=== PATIENT | male | born 1950 | race Hispanic/Latino ===

== ENCOUNTER → 2017-05-19 | Outpatient (CLI) | payer BC, MEDICARE ==
[~2017-05-19] MED LIST: ASPIRIN81 MG PO; ATENOLOL25 MG PO; COUMADIN5 MG PO; LANTUS 3ML100 UNITS/ SQ; LISINOPRIL10 MG PO; METFORMIN HCL500 MG PO
--- NOTE | 2017-05-19 12:08 | Diagnostic Imaging Report ---
Examination: MRI BRAIN WITHOUT CONTRAST History: Right-sided facial droop. Comparison studies: None Technique: Sagittal T2; axial DWI, FLAIR, GRE or SWI, T1, Coronal FLAIR. Intravenous contrast: None Findings: Scalp: No abnormal signal. No masses. Bone marrow: Normal in signal intensity. Brain volume: Adequate for age. No volume loss. Ventricles: Normal in size and configuration. No hydrocephalus. Extra-axial spaces: No abnormalities. Parenchyma: There are subtle periventricular and pontine white matter confluent areas of T2/FLAIR hyperintensity, nonspecific. No masses, hemorrhage, acute or chronic vascular insults. Suprasellar and sellar region: No abnormalities. Craniocervical junction: No abnormalities. The foramen magnum is patent. No Chiari malformations. Vessels: Normal flow-voids in the arteries and sinuses. Additional findings:None. IMPRESSION: 1. No acute intracranial abnormalities, specifically, no acute infarct. 2. Mild chronic microvascular ischemic change. Signed by: Dr. Thelma Saxena M.D. on 05/19/2017 12:04 PM
== END ==
LOC: MRI 09:31
PROVIDERS: ATTEND Internal Medicine Interventional Cardiology
DX: R29.810 Facial weakness (principal)
CPT/HCPCS: 70551

== ENCOUNTER → 2017-10-26 | Outpatient (CLI) | payer MEDICARE, BC ==
[~2017-10-26] MED LIST changes: +IOPAMIDOL 370 MG/ML 200 ML INFUS..BTL INJ ONE; +SODIUM CHLORIDE 0.9% 250ML 500 ML ONE; +SODIUM CHLORIDE 0.9% 50ML 50 ML ONE
[2017-10-26 16:08] LABS: CREATININE, SERUM 1.79 mg/dL (0.72-1.25)
--- NOTE | 2017-10-26 17:14 | Diagnostic Imaging Report ---
PROCEDURE: CT scan of the chest WITH intravenous contrast, using PE protocol. TECHNIQUE: The chest was scanned utilizing a multidetector helical scanner from the lung apex through the level of the adrenal glands after the IV administration of 98 cc of Isovue 370. Coronal and sagittal multiplanar reformations were obtained. DLP: 456.2 mGy-cm COMPARISON: None. INDICATIONS: PE WITH KIDNEY CANCER FINDINGS: Lines/tubes: Right chest wall port with catheter tip at the cavoatrial junction. Lungs and Airways: Scattered nodules, including (on series 3): * Right upper lobe 0.4 cm nodule (image 46) * Right middle lobe 0.5 cm nodule along the minor fissure (image 64). * Right upper lobe 0.3 cm area of plugging in a bronchus (image 47). * Right lower lobe 0.6 cm nodule (image 53) No consolidations. Airways are normal. Pleura: The pleural spaces are clear. Heart and mediastinum: Left thyroid lobe 0.6 cm nodules. No significant mediastinal, hilar or axillary lymphadenopathy is seen. The heart and pericardium are within normal limits. LAD stent. Coronary artery calcifications. Soft tissues: Normal. Abdomen: Limited contrast-enhanced views of the upper abdomen show no abnormality within the visualized liver, spleen, or pancreas. The adrenal glands are normal. Partially visualized mass in the superior pole of the left kidney. Bones: The visualized bony thorax is within normal limits for age. IMPRESSION: 1. No evidence of pulmonary embolism or acute thoracic abnormalities. 2. Scattered pulmonary nodules measuring up to 0.6 cm. Recommend correlation with prior imaging if available, and/or follow up per oncology protocol. 3. Partially visualized mass in the superior pole of the left kidney. Dictated by: Mayco Martinez M.D. on 10/26/2017 at 17:19 Electronically approved by: Mayco Martinez M.D. on 10/26/2017 at 17:19
== END ==
LOC: CT 15:16
PROVIDERS: ATTEND Internal Medicine Interventional Cardiology
DX: R06.02 Shortness of breath (principal)
CPT/HCPCS: 36415; 71260; 82565; 84520; J7050; Q9967

== ENCOUNTER → 2019-01-09 | Day surgery (SDC) | payer MEDICARE, BC ==
[2019-01-08 17:19] LABS: BASOPHILS % 0.5 % (0.0-1.0); EOSINOPHILS # (AUTO) 0.4 (0.0-0.4); EOSINOPHILS % 6.2 % (0.0-6.0); HEMATOCRIT 32.4 % (38.2-49.6); HEMOGLOBIN 11.6 g/dL (14.0-18.0); LYMPHOCYTES # (AUTO) 1.6 (1.0-3.2); LYMPHOCYTES % 26.7 % (18.0-39.1); MEAN CORPUSCULAR HEMOGLOBIN 30.1 pg (28-32); MEAN CORPUSCULAR HGB CONC 35.8 g/dL (31-35); MEAN CORPUSCULAR VOLUME 84.2 fL (81-99); MONOCYTES # (AUTO) 0.6 (0.2-0.8); MONOCYTES % 9.9 % (4.4-11.3); NEUTROPHILS # (AUTO) 3.3 (2.1-6.9); NEUTROPHILS % 55.9 % (38.7-80.0); PLATELET COUNT 153 x10e3/uL (140-360); RED BLOOD COUNT 3.85 x10e6/uL (4.3-5.7)
[2019-01-08 17:36] LABS: ALBUMIN 4.6 g/dL (3.5-5.0); ALBUMIN/GLOBULIN RATIO 1.4 (0.8-2.0); ANION GAP 17.4 mmol/L (8-16); CALCIUM 10.1 mg/dL (8.4-10.2); CREATININE, SERUM 2.8 mg/dL (0.72-1.25); POTASSIUM 5.4 mmol/L (3.5-5.1)
[2019-01-09] VITALS (10 sets, daily range): BP systolic 124–158; BP diastolic 60–87
[~2019-01-09] VITALS: Ht 162.6 cm; Wt 59.9 kg
[~2019-01-09] MED LIST changes: +ALPRAZOLAM 0.5 MG TAB ONE; +CARVEDILOL12.5 MG PO; +CARVEDILOL3.125 MG PO; +DIPHENHYDRAMINE HCL 25 MG CAP ONE; +FENTANYL CITRATE/PF 100MCG/2 ML INJ ONE; +HEPARIN SOD/SOD CHLORIDE 2,000 ML ONE; +LIDOCAINE HCL 2% LOCAL 20 ML VIAL ONE; +MIDAZOLAM HCL 2 MG/2 ML VIAL ONE; +SODIUM CHLORIDE 0.9% 1000ML 1,000 ML ONE; -SODIUM CHLORIDE 0.9% 250ML 500 ML ONE; +SODIUM CHLORIDE 0.9% 500ML 500 ML ONE; -SODIUM CHLORIDE 0.9% 50ML 50 ML ONE; +VERAPAMIL HCL 2.5 MG/ML 2 ML VIAL ONE
--- OUTSIDE RECORDS SUMMARY | 2019-01-09 08:59 | XMS REPORT ---
Author Author Aissatou Alejandre [facility] eClinicalWorks Address Unknown Phone Unavailable Care Team Providers Care Telegraph Office Manager Name Role Phone Aissatou Alejandre CP Unavailable Allergies, Adverse Reactions, Alerts Substance Reaction Event Type N.K.D.A. Info Not Available Non Drug Allergy Problems Problem Type Condition Code Onset Dates Condition Status Assessment Essential hypertension I10 Active Assessment Type 2 diabetes mellitus with hyperglycemia E11.65 Active Assessment Acute URI J06.9 Active Problem Anemia, unspecified type D64.9 Active Problem GERD (gastroesophageal reflux disease) K21.9 Active Problem Metastatic cancer C79.9 Active Problem Hx of bladder cancer Z85.51 Active Problem Type 2 diabetes mellitus with hyperglycemia E11.65 Active Problem CAD (coronary artery disease) I25.10 Active Problem Essential hypertension I10 Active Medications Medication Code System Code Instructions Start Date End Date Status Dosage OneTouch Lancets NDC 0 1 subcutaneously test BS BID DX:250.02 August 02, 2012 Active as directed Atorvastatin Calcium ND 72158181022 20 mg Orally Once a day Active 1 tablet [address]il[address] [facility] [address]-85 3.125MG Orally twice a day (bid) Active 1 tablet [address] [facility] 64602759030 4 mg Orally Twice a day May 16, 2018 Active 1 tablet Stool Softener [facility] [address]-34 60 MG/15ML Orally Once a day Active 15 ml as needed Lisinopril [facility] 09860772967 20 mg Orally Once a day Jun 24, 2016 Active 1 tablet OneTouch Test NDC 0 1 In Vitro test blood sugar BID DX: 250.02 August 02, 2012 Active as directed Metformin HCl [facility] 86744609530 1000 mg Orally Twice a day October 25, 2017 Active 1 tablet with meals NovoLog Flexpen [facility] 82516632397 100 UNIT/ML Subcutaneous take per sliding scale (highest dose would be 10 units TID) Dec 13, 2017 Active as directed Lantus SoloStar [facility] 15907471834 100 UNIT/ML Subcutaneous INJECTING 50 UNIITS EVERY NIGHT (1 BOX) (if above 140 increase by 2 units) Active as directed Bromfed DM [facility] 74681951428 30-2-10 MG/5ML Orally every 4 hrs September 19, 2018 September 22, 2018 Active 10 ml as needed Aspirin EC [facility] 55469763613 81 MG Orally Once a day Active 1 tablet Pen [place] 09/14" [facility] 57752333396 31G X 8 MM up to 4 times a day with insulin pens (DX E11.65) Dec 13, 2017 Active as directed Vital Signs Date/Time: September 19, 2018 BMI 23.86 Index Weight 139 lbs Height 64 in Temperature 97.8 F Cardiac Monitoring Heart Rate 72 /min Blood Pressure Diastolic 82 mm Hg Blood Pressure Systolic 130 mm Hg Results Name Result Date Reference Range Unit Abnormality Flag DECADRON 1MGx4 Summary Purpose eClinicalWorks Submission
--- OUTSIDE RECORDS SUMMARY | 2019-01-09 08:59 | XMS REPORT ---
Author Author Aissatou Alejandre [facility] eClinicalWorks Address Unknown Phone Unavailable Care Team Providers Care Product Development Engineer Name Role Phone Aissatou Alejandre CP Unavailable Allergies, Adverse Reactions, Alerts Substance Reaction Event Type N.K.D.A. Info Not Available Non Drug Allergy Problems Problem Type Condition Code Onset Dates Condition Status Assessment Hx of bladder cancer Z85.51 Active Assessment Flu-like symptoms R68.89 Active Assessment Metastatic cancer C79.9 Active Problem Anemia, unspecified type D64.9 Active Problem GERD (gastroesophageal reflux disease) K21.9 Active Problem Metastatic cancer C79.9 Active Problem Hx of bladder cancer Z85.51 Active Problem Type 2 diabetes mellitus with hyperglycemia E11.65 Active Problem CAD (coronary artery disease) I25.10 Active Problem Essential hypertension I10 Active Medications Medication Code System Code Instructions Start Date End Date Status Dosage Aspirin EC [facility] 02550795879 81 MG Orally Once a day Active 1 tablet Stool Softener [facility] [address]-46 60 MG/15ML Orally Once a day Active 15 ml as needed OneTouch Test NDC 0 1 In Vitro test blood sugar BID DX: 250.02 August 02, 2012 Active as directed Metformin HCl [facility] 19167408019 1000 mg Orally Twice a day October 25, 2017 Active 1 tablet with meals Zofran [facility] 13205348671 4 mg Orally Twice a day May 16, 2018 Active 1 tablet Carvedilol [facility] [address]-17 3.125MG Orally twice a day (bid) Active 1 tablet Lisinopril [facility] 80080376073 20 mg Orally Once a day Jun 24, 2016 Active 1 tablet OneTouch Lancets NDC 0 1 subcutaneously test BS BID DX:250.02 August 02, 2012 Active as directed NovoLog Flexpen [facility] 27578494314 100 UNIT/ML Subcutaneous take per sliding scale (highest dose would be 10 units TID) Dec 13, 2017 Active as directed Pen [place] 5/16" [facility] 03291776805 31G X 8 MM up to 4 times a day with insulin pens (DX E11.65) Dec 13, 2017 Active as directed Lantus SoloStar [facility] 67532402295 100 UNIT/ML Subcutaneous INJECTING 50 UNIITS EVERY NIGHT (1 BOX) (if above 140 increase by 2 units) Active as directed Atorvastatin Calcium [facility] 45285492400 20 mg Orally Once a day Active 1 tablet Vital Signs Date/Time: July 14, 2018 BMI 23.69 Index Weight 138 lbs Height 64 in Temperature 98.1 F Cardiac Monitoring Heart Rate 105 /min Blood Pressure Diastolic 70 mm Hg Blood Pressure Systolic 100 mm Hg Results No Known Results Summary Purpose eClinicalWorks Submission
--- OUTSIDE RECORDS SUMMARY | 2019-01-09 08:59 | XMS REPORT ---
Author Author Renee Marie eClinicalWorks Address Unknown Phone Unavailable Care Team Providers Care Wireworker Name Role Phone Renee Marie Unavailable Allergies, Adverse Reactions, Alerts Substance Reaction Event Type N.K.D.A. Info Not Available Non Drug Allergy Problems Problem Type Condition Code Onset Dates Condition Status Assessment Essential hypertension I10 Active Assessment Type 2 diabetes mellitus with hyperglycemia E11.65 Active Assessment Hx of bladder cancer Z85.51 Active Assessment Low TSH level R94.6 Active Problem Essential hypertension I10 Active Problem CAD (coronary artery disease) I25.10 Active Problem Type 2 diabetes mellitus with hyperglycemia E11.65 Active Problem Bladder cancer C67.9 Active Assessment Encounter to discuss test results Z71.89 Active Problem GERD (gastroesophageal reflux disease) K21.9 Active Problem Hx of bladder cancer Z85.51 Active Medications Medication Code System Code Instructions Start Date End Date Status Dosage Invokana [facility] [address]-45 100 MG Orally Once a day Apr 13, 2017 Inactive 1 tablet Invokana [facility] [address]-48 300 MG Orally Once a day October 22, 2016 Apr 20, 2017 Active 1 tablet Lantus SoloStar [facility] [address]-99 100 UNIT/ML Subcutaneous INJECTING 42 UNIITS EVERY NIGHT (1 BOX) (if above 140 increase by 2 units) Feb 17, 2015 Active as directed OneTouch Lancets NDC 0 1 subcutaneously test BS BID DX:250.02 August 02, 2012 Active as directed Carvedilol [facility] [address]-13 3.125MG Orally daily Active 1 tablet Lisinopril [facility] [address]-52 20 MG Orally Once a day Jun 24, 2016 Active 1 tablet Aspirin EC [facility] [address]-47 81 MG Orally Once a day Active 1 tablet OneTouch Test NDC 0 1 In Vitro test blood sugar BID DX: 250.02 August 02, 2012 Active as directed Vital Signs Date/Time: October 22, 2016 BMI 23.69 Index Weight 138 lbs Height 64 in Cardiac Monitoring Heart Rate 78 /min Blood Pressure Diastolic 62 mm Hg Blood Pressure Systolic 98 mm Hg Results No Known Results Summary Purpose eClinicalWorks Submission
--- OUTSIDE RECORDS SUMMARY | 2019-01-09 08:59 | XMS REPORT ---
Author Author Renee Marie eClinicalWorks Address Unknown Phone Unavailable Care Team Providers Care Technical Producer Name Role Phone Renee Marie Unavailable Allergies, Adverse Reactions, Alerts Substance Reaction Event Type N.K.D.A. Info Not Available Non Drug Allergy Problems Problem Type Condition Code Onset Dates Condition Status Assessment Essential hypertension I10 Active Problem Essential hypertension I10 Active Problem CAD (coronary artery disease) I25.10 Active Problem Type 2 diabetes mellitus with hyperglycemia E11.65 Active Problem Bladder cancer C67.9 Active Assessment Intractable vomiting with nausea, unspecified vomiting type R11.2 Active Problem GERD (gastroesophageal reflux disease) K21.9 Active Problem Hx of bladder cancer Z85.51 Active Medications Medication Code System Code Instructions Start Date End Date Status Dosage Aspirin EC [facility] [address]-48 81 MG Orally Once a day Active 1 tablet OneTouch Test NDC 0 1 In Vitro test blood sugar BID DX: 250.02 August 02, 2012 Active as directed Lisinopril [facility] [address]-86 20 MG Orally Once a day Jun 24, 2016 Active 1 tablet Carvedilol [facility] [address]-47 3.125MG Orally daily Active 1 tablet OneTouch Lancets NDC 0 1 subcutaneously test BS BID DX:250.02 August 02, 2012 Active as directed Lantus SoloStar [facility] [address]-65 100 UNIT/ML Subcutaneous INJECTING 42 UNIITS EVERY NIGHT (1 BOX) (if above 140 increase by 2 units) Feb 17, 2015 Active as directed Invokana [facility] [address]-87 300 MG Orally Once a day October 22, 2016 Apr 20, 2017 Active 1 tablet Vital Signs Date/Time: November 04, 2016 BMI 23.86 Index Weight 139 lbs Height 64 in Temperature 97.9 F Cardiac Monitoring Heart Rate 93 /min Blood Pressure Diastolic 72 mm Hg Blood Pressure Systolic 128 mm Hg Results Name Result Date Reference Range Unit Abnormality Flag CBC ----Platelets 238 [id number] ----NEUTROPHILS MID-0.3,GRA-2.5 20161104 ----MCHC 33.9 20161104 ----MCH 31.9 20161104 ----MCV 94.3 20161104 ----WBC 3.9L 20161104 ----RDW 12.6 20161104 ----RBC 4.48 20161104 ----Hemoglobin 14.3 20161104 ----Hematocrit 42.2 20161104 Summary Purpose eClinicalWorks Submission
--- OUTSIDE RECORDS SUMMARY | 2019-01-09 08:59 | XMS REPORT ---
Author Author Renee Marie [facility] eClinicalWorks Address Unknown Phone Unavailable Care Team Providers Care Bankman Name Role Phone Renee Marie Unavailable Allergies, Adverse Reactions, Alerts Substance Reaction Event Type N.K.D.A. Info Not Available Non Drug Allergy Problems Problem Type Condition Code Onset Dates Condition Status Assessment Hx of bladder cancer Z85.51 Active Assessment Essential hypertension I10 Active Assessment CAD (coronary artery disease) I25.10 Active Problem Essential hypertension I10 Active Problem CAD (coronary artery disease) I25.10 Active Problem Type 2 diabetes mellitus with hyperglycemia E11.65 Active Problem Bladder cancer C67.9 Active Assessment Type 2 diabetes mellitus with hyperglycemia E11.65 Active Problem GERD (gastroesophageal reflux disease) K21.9 Active Problem Hx of bladder cancer Z85.51 Active Medications Medication Code System Code Instructions Start Date End Date Status Dosage Carvedilol [facility] [address]-00 3.125MG Orally daily Active 1 tablet OneTouch Test NDC 0 1 In Vitro test blood sugar BID DX: 250.02 August 02, 2012 Active as directed Invokana [facility] 71379337286 100MG Orally Once a day Active 1 tablet Lantus SoloStar [facility] [address]-76 100 UNIT/ML Subcutaneous INJECTING 40 UNIITS EVERY NIGHT (1 BOX) Feb 17, 2015 Active as directed OneTouch Lancets NDC 0 1 subcutaneously test BS BID DX:250.02 August 02, 2012 Active as directed Lisinopril [facility] [address]-89 20 MG Orally Once a day Jun 24, 2016 Active 1 tablet Invokana [facility] [address]-24 100 MG Orally Once a day Apr 13, 2017 Active 1 tablet Aspirin EC [facility] [address]-77 81 MG Orally Once a day Active 1 tablet Vital Signs Date/Time: October 15, 2016 BMI 23.69 Index Weight 138 lbs Height 64 in Cardiac Monitoring Heart Rate 97 /min Blood Pressure Diastolic 74 mm Hg Blood Pressure Systolic 138 mm Hg Results Name Result Date Reference Range Unit Abnormality Flag EKG Summary Purpose eClinicalWorks Submission
--- OUTSIDE RECORDS SUMMARY | 2019-01-09 08:59 | XMS REPORT ---
Author Author Renee Marie Organization eClinicalWorks Address Unknown Phone Unavailable Care Team Providers Care [place] Redevelopment Site Manager Name Role Phone Renee Marie CP Unavailable Allergies, Adverse Reactions, Alerts Substance Reaction Event Type N.K.D.A. Info Not Available Non Drug Allergy Problems Problem Type Condition Code Onset Dates Condition Status Assessment CAD (coronary artery disease) I25.10 Active Assessment GERD (gastroesophageal reflux disease) K21.9 Active Problem CAD (coronary artery disease) I25.10 Active Problem Essential hypertension I10 Active Problem GERD (gastroesophageal reflux disease) K21.9 Active Assessment Type 2 diabetes mellitus with hyperglycemia E11.65 Active Assessment Essential hypertension I10 Active Problem Hx of bladder cancer Z85.51 Active Problem Type 2 diabetes mellitus with hyperglycemia E11.65 Active Medications Medication Code System Code Instructions Start Date End Date Status Dosage Carvedilol [facility] [address]-12 3.125MG Orally daily Active 1 tablet OneTouch Test NDC 0 1 In Vitro test blood sugar BID DX: 250.02 August 02, 2012 Active as directed Lantus SoloStar [facility] 15966218991 100 UNIT/ML Subcutaneous INJECTING 40 UNIITS EVERY NIGHT (1 BOX) (if above 140 increase by 2 units) Feb 17, 2015 Active as directed OneTouch Lancets NDC 0 1 subcutaneously test BS BID DX:250.02 August 02, 2012 Active as directed Aspirin EC [facility] 99153895264 81 MG Orally Once a day Active 1 tablet Lisinopril [facility] 49193171381 20 mg Orally Once a day Jun 24, 2016 Active 1 tablet Invokana [facility] 45652886330 300 MG Orally Once a day October 22, 2016 August 23, 2017 Active 1 tablet Vital Signs Date/Time: Feb 24, 2017 BMI 25.92 Index Weight 151 lbs Height 64 in Cardiac Monitoring Heart Rate 82 /min Blood Pressure Diastolic 80 mm Hg Blood Pressure Systolic 130 mm Hg Results No Known Results Summary Purpose eClinicalWorks Submission
--- OUTSIDE RECORDS SUMMARY | 2019-01-09 08:59 | XMS REPORT ---
Author Author Renee Marie Organization eClinicalWorks Address Unknown Phone Unavailable Care Team Providers Care Waterproof Coating Machine Tender Name Role Phone Renee Marie CP Unavailable Allergies, Adverse Reactions, Alerts Substance Reaction Event Type N.K.D.A. Info Not Available Non Drug Allergy Problems Problem Type Condition Code Onset Dates Condition Status Assessment Hx of bladder cancer Z85.51 Active Assessment Essential hypertension I10 Active Problem CAD (coronary artery disease) I25.10 Active Problem Essential hypertension I10 Active Problem GERD (gastroesophageal reflux disease) K21.9 Active Assessment Encounter to discuss test results Z71.89 Active Assessment Type 2 diabetes mellitus with hyperglycemia E11.65 Active Problem Hx of bladder cancer Z85.51 Active Problem Type 2 diabetes mellitus with hyperglycemia E11.65 Active Medications Medication Code System Code Instructions Start Date End Date Status Dosage OneTouch Test NDC 0 1 In Vitro test blood sugar BID DX: 250.02 August 02, 2012 Active as directed Lantus SoloStar [facility] 15399468066 100 UNIT/ML Subcutaneous INJECTING 42 UNIITS EVERY NIGHT (1 BOX) (if above 140 increase by 2 units) Feb 17, 2015 Active as directed Invokana [facility] 13789974901 300 MG Orally Once a day October 22, 2016 August 23, 2017 Active 1 tablet OneTouch Lancets NDC 0 1 subcutaneously test BS BID DX:250.02 August 02, 2012 Active as directed Carvedilol [facility] [address]-92 3.125MG Orally daily Active 1 tablet Lisinopril [facility] 94242293857 20 mg Orally Once a day Jun 24, 2016 Active 1 tablet Aspirin EC ND 56949748830 81 MG Orally Once a day Active 1 tablet Vital Signs Date/Time: Mar 10, 2017 BMI 25.92 Index Weight 151 lbs Height 64 in Cardiac Monitoring Heart Rate 86 /min Blood Pressure Diastolic 96 mm Hg Blood Pressure Systolic 140 mm Hg Results No Known Results Summary Purpose eClinicalWorks Submission
--- OUTSIDE RECORDS SUMMARY | 2019-01-09 08:59 | XMS REPORT | Continuity of Care Document ---
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 Role Phone [employer] Unavailable Unavailable Problems Problem Status Onset Date Classification Date Reported Comments Source Hx of bladder cancer Active Problem 10/07/2018 [facility] Essential hypertension Active Diagnosis 10/07/2018 [facility] CAD (coronary artery disease) Active Problem 10/07/2018 [facility] Type 2 diabetes mellitus with hyperglycemia Active Diagnosis 10/07/2018 [facility] Bladder cancer Active Problem 11/06/2016 [facility] GERD (gastroesophageal reflux disease) Active Problem 10/07/2018 [facility] Left lateral abdominal pain Active Diagnosis 09/11/2016 [facility] Flu-like symptoms Active Diagnosis 07/26/2018 [facility] Metastatic cancer Active Problem 10/07/2018 [facility] Anemia, unspecified type Active Problem 10/07/2018 [facility] Low TSH level Active Diagnosis 10/26/2016 [facility] Encounter to discuss test results Active Diagnosis 03/12/2017 [facility] Intractable vomiting with nausea, unspecified vomiting type Active Diagnosis 11/06/2016 [facility] Type 2 diabetes mellitus without complication, without long-term current use of insulin Active Problem 12/14/2017 [facility] Abnormal chest xray Active Diagnosis 04/12/2018 [facility] Screening for colon cancer Active Diagnosis 04/11/2018 [facility] Routine physical examination Active Diagnosis 04/11/2018 [facility] Screening for prostate cancer Active Diagnosis 04/11/2018 [facility] Olecranon bursitis, left elbow Active Diagnosis 05/27/2018 [facility] GERD (gastroesophageal reflux disease) Active Problem 12/30/2015 [facility] CAD (coronary artery disease) Active Problem 12/30/2015 [facility] Insulin dependent type 2 diabetes mellitus, uncontrolled Active Problem 12/30/2015 [facility] History of bladder cancer Active Problem 12/30/2015 [facility] Hypertension Active Problem 12/30/2015 [facility] Diarrhea, unspecified type Active Diagnosis 05/27/2018 [facility] Nausea Active Diagnosis 05/27/2018 [facility] Cough Active Diagnosis 12/29/2017 [facility] Normal body mass index Active Problem 12/30/2015 [facility] Body Mass Index between 19-24, adult Active Problem 12/30/2015 [facility] Elevated glucose Active Diagnosis 09/02/2015 [facility] Essential (primary) hypertension Active Diagnosis 04/22/2015 [facility] Type 2 diabetes mellitus without complication Active Diagnosis 04/22/2015 [facility] Acute URI Active Diagnosis 10/07/2018 [facility] Acute gastroenteritis Active Diagnosis 02/13/2016 [facility] Right anterior shoulder pain Active Diagnosis 06/29/2016 [facility] Medications Medication Details Route Status Patient Instructions Ordering Provider Order Date Source Bromfed DM 10 ml as needed Orally Active 30-2-10 MG/5ML Orally every 4 hrs [facility] 09/19/2018 [facility] Zofran 1 tablet Orally Active 4 mg Orally Twice a day [facility] 05/16/2018 [facility] With [facility] Diphenoxylate-Atropine 1 tablet as needed Orally Active 2.5-0.025 MG Orally Four times a day Band[facility] 05/16/2018 [facility] With [facility] Benzonatate 1 capsule Orally Active 200 MG Orally Q7 PRN Bennett 12/28/2017 [facility] NovoLog Flexpen as directed Subcutaneous Active 100 UNIT/ML Subcutaneous take per sliding scale (highest dose would be 10 units TID) [facility] 12/13/2017 [facility] With [facility] Pen [place] 5/16" as directed NA Active 31G X 8 MM up to 4 times a day with insulin pens (DX E11.65) [facility] 12/13/2017 [facility] Metformin HCl 1 tablet with meals Orally Active 1000 mg Orally Twice a day Alejandre 10/25/2017 [facility] Invokana 1 tablet Orally Active 100 MG Orally Once a day Frank 04/13/2017 [facility] Invokana 1 tablet Orally Active 300 MG Orally Once a day [place] 10/22/2016 [facility] Invokana 1 tablet Orally Active 300 MG Orally Once a day Frank 10/22/2016 [facility] Lisinopril 1 tablet Orally Active 20 MG Orally Once a day Frank 06/24/2016 [facility] Lisinopril 1 tablet Orally Active 20 mg Orally Once a day Alejandre 06/24/2016 [facility] Naproxen 1 tablet as needed Orally Active 500 MG Orally every 12 hrs prn Frank 06/24/2016 [facility] Phenergan 1 tablet as needed Orally Active 12.5 MG Orally every 6 hrs prn Frank 02/10/2016 [facility] Invokana 1 tablet Orally Active 100 MG Orally Once a day Frank 02/10/2016 [facility] Lantus SoloStar as directed Subcutaneous Active 100 UNIT/ML Subcutaneous INJECTING 42 UNIITS EVERY NIGHT (1 BOX) (if above 140 increase by 2 units) Frank 02/17/2015 [facility] With [facility] Lantus SoloStar as directed Subcutaneous Active 100 UNIT/ML Subcutaneous INJECTING 50 UNIITS EVERY NIGHT (1 BOX) (if above 140 increase by 2 units) Bandar 02/17/2015 [facility] With [facility] Metformin HCl 1 tablet Orally Active 500 mg Orally twice a day (bid) with meal Frank 12/04/2014 [facility] Metformin HCl 2 tablets with meals Orally Active 500 mg Orally Twice a day Leopold 09/03/2014 [facility] With [facility] OneTouch Test as directed In Vitro Active 1 In Vitro test blood sugar BID DX: 250.02 [facility] 08/02/2012 [facility] With [facility] OneTouch Lancets as directed subcutaneously Active 1 subcutaneously test BS BID DX:250.02 [facility] 08/02/2012 [facility] With [facility] OneTouch Lancets as directed subcutaneously Active 1 subcutaneously test BS BID DX:250.02 [facility] 08/02/2012 [facility] OneTouch Test as directed In Vitro Active 1 In Vitro test blood sugar BID DX: 250.02 Carm[place] 08/02/2012 [facility] OneTouch Test as directed In Vitro Active 1 In Vitro test blood sugar BID DX: 250.02 Frank 08/02/2012 [facility] OneTouch Lancets as directed subcutaneously Active 1 subcutaneously test BS BID DX:250.02 Frank 08/02/2012 [facility] Carvedilol 1 tablet Orally Active 3.125MG Orally twice a day (bid) Pili [facility] Invokana 1 tablet Orally Active 100MG Orally Once a day Frank [facility] Aspirin EC 1 tablet Orally Active 81 MG Orally Once a day Frank [facility] Invokana 1 tablet Orally Active 100 mg Orally Once a day Frank [facility] Aspirin EC 1 tablet Orally Active 81 MG Orally Once a day Pili [facility] Stool Softener 15 ml as needed Orally Active 60 MG/15ML Orally Once a day Pili [facility] Lantus SoloStar as directed Subcutaneous Active 100 UNIT/ML Subcutaneous INJECTING 50 UNIITS EVERY NIGHT (1 BOX) (if above 140 increase by 2 units) Pili [facility] Atorvastatin Calcium 1 tablet Orally Active 20 mg Orally Once a day Pili [facility] Lantus SoloStar 32 units Subcutaneous Active 100 UNIT/ML Subcutaneous Once a day Carmelo [facility] Plavix 1 tablet Orally Active 75 mg Orally Once a day Carmelo [facility] Lisinopril 1 tablet Orally Active 10 mg Orally Once a day Russel [facility] Metformin HCl 1 tablet with meals Orally Active 500 mg Orally Once a day Jesús [facility] Lisinopril 1 tablet Orally No Longer Active 10 mg Orally Once a day Frank [facility] Tamsulosin HCl 1 capsule Orally Active 0.4 MG Orally every night Frank [facility] Tamsulosin HCl 1 capsule Orally Active 0.4 MG Orally every night Frank [facility] Allergies, Adverse Reactions, Alerts Substance Category Reaction Severity Reaction type Status Date Reported Comments Source N.K.D.A. Adverse Reaction Info Not Available Adverse Reaction Active 09/19/2018 [facility] Immunizations No Data Provided for This Section Results No Data Provided for This Section Pathology Reports No Data Provided for This Section Diagnostic Reports No Data Provided for This Section Consultation Notes No Data Provided for This Section Discharge Summaries No Data Provided for This Section History and Physicals No Data Provided for This Section Vital Signs Vital Sign Value Date Comments Source Weight 139 09/19/2018 [facility] Height 64 09/19/2018 [facility] Temperature Oral (F) 97.8 F 09/19/2018 [facility] Heart Rate 72 09/19/2018 [facility] Diastolic (mm Hg) 82 09/19/2018 [facility] Systolic (mm Hg) 130 09/19/2018 [facility] Weight 138 07/14/2018 [facility] Height 64 07/14/2018 [facility] Temperature Oral (F) 98.1 F 07/14/2018 [facility] Heart Rate 105 07/14/2018 [facility] Diastolic (mm Hg) 70 07/14/2018 [facility] Systolic (mm Hg) 100 07/14/2018 [facility] Weight 141 05/16/2018 [facility] Height 64 05/16/2018 [facility] Temperature Oral (F) 97.4 F 05/16/2018 [facility] Heart Rate 74 05/16/2018 [facility] Diastolic (mm Hg) 60 05/16/2018 [facility] Systolic (mm Hg) 100 05/16/2018 [facility] Weight 135 04/10/2018 [facility] Height 64 04/10/2018 [facility] Heart Rate 85 04/10/2018 [facility] Diastolic (mm Hg) 74 04/10/2018 [facility] Systolic (mm Hg) 112 04/10/2018 [facility] Weight 144 12/28/2017 [facility] Height 64 12/28/2017 [facility] Temperature Oral (F) 98.9 F 12/28/2017 [facility] Heart Rate 70 12/28/2017 [facility] Diastolic (mm Hg) 70 12/28/2017 [facility] Systolic (mm Hg) 110 12/28/2017 [facility] Weight 136 12/13/2017 [facility] Height 64 12/13/2017 [facility] Heart Rate 76 12/13/2017 [facility] Diastolic (mm Hg) 60 12/13/2017 [facility] Systolic (mm Hg) 140 12/13/2017 [facility] Weight 132 10/25/2017 [facility] Height 64 10/25/2017 [facility] Heart Rate 73 10/25/2017 [facility] Diastolic (mm Hg) 68 10/25/2017 [facility] Systolic (mm Hg) 100 10/25/2017 [facility] Weight 138 09/09/2017 [facility] Height 64 09/09/2017 [facility] Temperature Oral (F) 98.5 F 09/09/2017 [facility] Heart Rate 82 09/09/2017 [facility] Diastolic (mm Hg) 84 09/09/2017 [facility] Systolic (mm Hg) 130 09/09/2017 [facility] Weight 151 03/10/2017 [facility] Height 64 03/10/2017 [facility] Heart Rate 86 03/10/2017 [facility] Diastolic (mm Hg) 96 03/10/2017 [facility] Systolic (mm Hg) 140 03/10/2017 [facility] Weight 151 02/24/2017 [facility] Height 64 02/24/2017 [facility] Heart Rate 82 02/24/2017 [facility] Diastolic (mm Hg) 80 02/24/2017 [facility] Systolic (mm Hg) 130 02/24/2017 [facility] Weight 139 11/04/2016 [facility] Height 64 11/04/2016 [facility] Temperature Oral (F) 97.9 F 11/04/2016 [facility] Heart Rate 93 11/04/2016 [facility] Diastolic (mm Hg) 72 11/04/2016 [facility] Systolic (mm Hg) 128 11/04/2016 [facility] Weight 138 10/22/2016 [facility] Height 64 10/22/2016 [facility] Heart Rate 78 10/22/2016 [facility] Diastolic (mm Hg) 62 10/22/2016 [facility] Systolic (mm Hg) 98 10/22/2016 [facility] Weight 138 10/15/2016 [facility] Height 64 10/15/2016 [facility] Heart Rate 97 10/15/2016 [facility] Diastolic (mm Hg) 74 10/15/2016 [facility] Systolic (mm Hg) 138 10/15/2016 [facility] Weight 140 09/09/2016 [facility] Height 64 09/09/2016 [facility] Heart Rate 80 09/09/2016 [facility] Diastolic (mm Hg) 78 09/09/2016 [facility] Systolic (mm Hg) 120 09/09/2016 [facility] Weight 140 06/24/2016 [facility] Height 64 06/24/2016 [facility] Heart Rate 80 06/24/2016 [facility] Diastolic (mm Hg) 90 06/24/2016 [facility] Systolic (mm Hg) 148 06/24/2016 [facility] Weight 141 02/10/2016 [facility] Height 64 02/10/2016 [facility] Temperature Oral (F) 97.8 F 02/10/2016 [facility] Heart Rate 83 02/10/2016 [facility] Diastolic (mm Hg) 70 02/10/2016 [facility] Systolic (mm Hg) 140 02/10/2016 [facility] Weight 145 01/20/2016 [facility] Height 64 01/20/2016 [facility] Heart Rate 76 01/20/2016 [facility] Diastolic (mm Hg) 82 01/20/2016 [facility] Systolic (mm Hg) 124 01/20/2016 [facility] Weight 149 08/27/2015 [facility] Height 64 08/27/2015 [facility] Heart Rate 89 08/27/2015 [facility] Diastolic (mm Hg) 70 08/27/2015 [facility] Systolic (mm Hg) 140 08/27/2015 [facility] Weight 153 04/17/2015 [facility] Height 64 04/17/2015 [facility] Heart Rate 62 04/17/2015 [facility] Diastolic (mm Hg) 82 04/17/2015 [facility] Systolic (mm Hg) 142 04/17/2015 [facility] Weight 149 04/11/2013 [facility] Height 64 04/11/2013 [facility] Heart Rate 77 04/11/2013 [facility] Diastolic (mm Hg) 88 04/11/2013 [facility] Systolic (mm Hg) 148 04/11/2013 [facility] Weight 147 12/11/2012 [facility] Height 64 12/11/2012 [facility] Heart Rate 64 12/11/2012 [facility] Diastolic (mm Hg) 88 12/11/2012 [facility] Systolic (mm Hg) 132 12/11/2012 [facility] Weight 147 12/11/2012 [facility] Height 64 12/11/2012 [facility] Heart Rate 64 12/11/2012 [facility] Diastolic (mm Hg) 88 12/11/2012 [facility] Systolic (mm Hg) 132 12/11/2012 [facility] Encounters Location Location Details Encounter Type Encounter Number Reason For Visit Attending Provider ADM Date DC Date Status Source [facility] DIABETIC CHK [id number] 12/11/2012 12/11/2012 [facility]erged With [facility] DIABETIC CHK [id number] 12/11/2012 12/11/2012 [facility] DIABETIC CHK [id number] 12/11/2012 12/11/2012 [facility] With [facility] DIABETIC CHK [id number] 12/11/2012 12/11/2012 [facility] DIABETIC CHK [id number] 12/11/2012 12/11/2012 [facility] DIABETIC CHK [id number] 12/11/2012 12/11/2012 [facility] DIABETIC CHK [id number] 12/11/2012 12/11/2012 [facility] DIABETIC CHK [id number] 12/11/2012 12/11/2012 [facility] DIABETIC CHK [id number] 12/11/2012 12/11/2012 [facility] DIABETIC CHK [id number] 12/11/2012 12/11/2012 [facility] DIABETIC K [id number] 12/11/2012 12/11/2012 [facility] DIABETIC K [id number] 12/11/2012 12/11/2012 [facility] DIABETIC K [id number] 12/11/2012 12/11/2012 [facility] Unknown [id number] 04/04/2013 04/04/2013 [facility] Unknown [id number] 04/04/2013 04/04/2013 [facility] Unknown [id number] 04/04/2013 04/04/2013 [facility] Unknown [id number] 04/04/2013 04/04/2013 [facility] Unknown [id number] 04/04/2013 04/04/2013 [facility] Unknown [id number] 04/04/2013 04/04/2013 [facility] With [facility] Unknown [id number] 04/04/2013 04/04/2013 [facility] Unknown [id number] 04/04/2013 04/04/2013 [facility] Unknown [id number] 04/04/2013 04/04/2013 [facility] Unknown [id number] 04/04/2013 04/04/2013 [facility] Unknown [id number] 04/04/2013 04/04/2013 [facility] Unknown [id number] 04/04/2013 04/04/2013 [facility] DIAB [id number] 04/11/2013 04/11/2013 [facility] DIAB K [id number] 04/11/2013 04/11/2013 [facility] DIAB K [id number] 04/11/2013 04/11/2013 [facility] DIAB K [id number] 04/11/2013 04/11/2013 [facility] DIAB K [id number] 04/11/2013 04/11/2013 [facility] DIAB K [id number] 04/11/2013 04/11/2013 [facility] DIAB K [id number] 04/11/2013 04/11/2013 [facility] DIAB K [id number] 04/11/2013 04/11/2013 [facility] DIAB K [id number] 04/11/2013 04/11/2013 [facility] DIAB K [id number] 04/11/2013 04/11/2013 [facility] DIAB K [id number] 04/11/2013 04/11/2013 [facility] Refill [id number] 04/11/2014 04/11/2014 [facility] Refill [id number] 04/11/2014 04/11/2014 [facility] Refill [id number] 04/11/2014 04/11/2014 [facility] [facility] Refill [id number] 04/11/2014 04/11/2014 [facility] With [facility] Refill [id number] 04/11/2014 04/11/2014 [facility] Refill [id number] 04/11/2014 04/11/2014 [facility] Refill [id number] 04/11/2014 04/11/2014 [facility] Refill [id number] 04/11/2014 04/11/2014 [facility] Refill [id number] 04/11/2014 04/11/2014 [facility] Refill [id number] 04/11/2014 04/11/2014 [facility] MED REFILL [id number] 08/16/2014 08/16/2014 [facility] MED REFILL [id number] 08/16/2014 08/16/2014 [facility] MED REFILL [id number] 08/16/2014 08/16/2014 [facility] MED REFILL [id number] 08/16/2014 08/16/2014 [facility] MED REFILL [id number] 08/16/2014 08/16/2014 [facility] MED REFILL [id number] 08/16/2014 08/16/2014 [facility] MED REFILL [id number] 08/16/2014 08/16/2014 [facility] MED REFILL [id number] 08/16/2014 08/16/2014 [facility] MED REFILL [id number] 08/16/2014 08/16/2014 [facility] 2 WK FOLLOW UP FBW [id number] 09/02/2014 09/02/2014 [facility] 2 WK FOLLOW UP FBW [id number] 09/02/2014 09/02/2014 [facility] 2 WK FOLLOW UP FBW [id number] 09/02/2014 09/02/2014 [facility] 2 WK FOLLOW UP FBW [id number] 09/02/2014 09/02/2014 [facility] 2 WK FOLLOW UP FBW [id number] 09/02/2014 09/02/2014 [facility] 2 WK FOLLOW UP FBW [id number] 09/02/2014 09/02/2014 [facility] 2 WK FOLLOW UP FBW [id number] 09/02/2014 09/02/2014 [facility] 2 WK FOLLOW UP FBW [id number] 09/02/2014 09/02/2014 [facility] 2 WK FOLLOW UP FBW [id number] 09/02/2014 09/02/2014 [facility] Metformin [id number] 09/03/2014 09/03/2014 [facility] Metformin [id number] 09/03/2014 09/03/2014 [facility] Metformin [id number] 09/03/2014 09/03/2014 [facility] Metformin [id number] 09/03/2014 09/03/2014 [facility] Metformin [id number] 09/03/2014 09/03/2014 [facility] Metformin [id number] 09/03/2014 09/03/2014 [facility] Metformin [id number] 09/03/2014 09/03/2014 [facility] [id number] 09/03/2014 09/03/2014 [facility] [id number] 09/03/2014 09/03/2014 [facility] 3 MONTH FOLLOW UP [id number] 12/03/2014 12/03/2014 [facility] 3 MONTH FOLLOW UP [id number] 12/03/2014 12/03/2014 [facility] 3 MONTH FOLLOW UP [id number] 12/03/2014 12/03/2014 [facility] 3 MONTH FOLLOW UP [id number] 12/03/2014 12/03/2014 [facility] 3 MONTH FOLLOW UP [id number] 12/03/2014 12/03/2014 [facility] 3 MONTH FOLLOW UP [id number] 12/03/2014 12/03/2014 [facility] 3 MONTH FOLLOW UP [id number] 12/03/2014 12/03/2014 [facility] 3 MONTH FOLLOW UP [id number] 12/03/2014 12/03/2014 [facility] labs [id number] 12/04/2014 12/04/2014 [facility] labs [id number] 12/04/2014 12/04/2014 [facility] labs [id number] 12/04/2014 12/04/2014 [facility] labs [id number] 12/04/2014 12/04/2014 [facility] labs [id number] 12/04/2014 12/04/2014 [facility] labs [id number] 12/04/2014 12/04/2014 [facility] labs [id number] 12/04/2014 12/04/2014 [facility] labs [id number] 12/04/2014 12/04/2014 [facility] Diabetic check [id number] 04/17/2015 04/17/2015 [facility] Diabetic check [id number] 04/17/2015 04/17/2015 [facility] Diabetic check [id number] 04/17/2015 04/17/2015 [facility] Diabetic check [id number] 04/17/2015 04/17/2015 [facility] Diabetic check [id number] 04/17/2015 04/17/2015 [facility] Diabetic check [id number] 04/17/2015 04/17/2015 [facility] Diabetic check [id number] 04/17/2015 04/17/2015 [facility] Diabetic check [id number] 04/17/2015 04/17/2015 [facility] [id number] 07/30/2015 07/30/2015 [facility] [id number] 07/30/2015 07/30/2015 [facility] [id number] 07/30/2015 07/30/2015 [facility] [id number] 07/30/2015 07/30/2015 [facility] [id number] 07/30/2015 07/30/2015 [facility] [id number] 07/30/2015 07/30/2015 [facility] RF [id number] 07/30/2015 07/30/2015 [facility] Refill [id number] 08/27/2015 08/27/2015 [facility] Refill [id number] 08/27/2015 08/27/2015 [facility] Refill [id number] 08/27/2015 08/27/2015 [facility] Refill [id number] 08/27/2015 08/27/2015 [facility] Refill [id number] 08/27/2015 08/27/2015 [facility] Refill [id number] 08/27/2015 08/27/2015 [facility] Refill [id number] 12/29/2015 12/29/2015 [facility] Refill [id number] 12/29/2015 12/29/2015 [facility] Refill [id number] 12/29/2015 12/29/2015 [facility] Refill [id number] 12/29/2015 12/29/2015 [facility] Refill [id number] 12/29/2015 12/29/2015 [facility] 3 MONTH FOLLOW UP [id number] 01/20/2016 01/20/2016 [facility] 3 MONTH FOLLOW UP [id number] 01/20/2016 01/20/2016 [facility] 3 MONTH FOLLOW UP [id number] 01/20/2016 01/20/2016 [facility] 3 MONTH FOLLOW UP [id number] 01/20/2016 01/20/2016 [facility] Lab results [id number] 02/10/2016 02/10/2016 [facility] Lab results [id number] 02/10/2016 02/10/2016 [facility] Unknown [id number] 02/11/2016 02/11/2016 [facility] Unknown [id number] 02/11/2016 02/11/2016 [facility] Unknown [id number] 02/11/2016 02/11/2016 [facility] medication refills [id number] 06/24/2016 06/24/2016 [facility] Procedures No Data Provided for This Section Assessment and Plan No Data Provided for This Section Plan of Care No Data Provided for This Section Social History Social History Date Source Social History ElementQualifiersDate Reported Last Bone Density: . never Jun 24, 2016 Depression Screening: . negative Jun 24, 2016 Flu Vaccine: . NO Jun 24, 2016 Last Colonoscopy: . 08/02/2008 Jun 24, 2016 children . 2 Jun 24, 2016 Tobacco Use: . Are you a: never smoker Jun 24, 2016 Marital Status: single. Jun 24, 2016 Do you drink alcohol? . Status: Yes, Type: Beer, How often? Socially, How much? 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 Jun 24, 2016 06/24/2016 [facility] Family History Value Date Source QualifierDescriptionCommentDate Reported Father hypertension Apr 11, 2013 Mother hypertension, diabetes mellitus Apr 11, 2013 Children alive healthy Apr 11, 2013 04/14/2013 [facility] QualifierDescriptionCommentDate Reported Father hypertension Dec 11, 2012 Mother hypertension, diabetes mellitus Dec 11, 2012 Children alive healthy Dec 11, 2012 12/20/2012 [facility] Advance Directives No Data Provided for This Section Functional Status No Data Provided for This Section
--- OUTSIDE RECORDS SUMMARY | 2019-01-09 08:59 | XMS REPORT ---
Author Author Renee Marie [facility] e[employer]Works Address Unknown Phone Unavailable Care Team Providers Care Machine Compositor Name Role Phone Renee Marie Unavailable Allergies, Adverse Reactions, Alerts Substance Reaction Event Type N.K.D.A. Info Not Available Non Drug Allergy Problems Problem Type Condition Code Onset Dates Condition Status Problem Essential hypertension I10 Active Problem CAD (coronary artery disease) I25.10 Active Problem Type 2 diabetes mellitus with hyperglycemia E11.65 Active Problem Bladder cancer C67.9 Active Assessment Left lateral abdominal pain R10.9 Active Problem GERD (gastroesophageal reflux disease) K21.9 Active Problem Hx of bladder cancer Z85.51 Active Medications Medication Code System Code Instructions Start Date End Date Status Dosage Aspirin EC [facility] [address]-98 81 MG Orally Once a day Active 1 tablet OneTouch Test NDC 0 1 In Vitro test blood sugar BID DX: 250.02 August 02, 2012 Active as directed Lantus SoloStar [facility] [address]-85 100 UNIT/ML Subcutaneous INJECTING 36 UNIITS EVERY NIGHT (1 BOX) Feb 17, 2015 Active as directed Carvedilol [facility] [address]-24 3.125MG Orally daily Active 1 tablet Lisinopril [facility] [address]-48 20 MG Orally Once a day Jun 24, 2016 Active 1 tablet Invokana [facility] [address]-75 100 mg Orally Once a day Active 1 tablet OneTouch Lancets NDC 0 1 subcutaneously test BS BID DX:250.02 August 02, 2012 Active as directed Vital Signs Date/Time: September 09, 2016 BMI 24.03 Index Weight 140 lbs Height 64 in Cardiac Monitoring Heart Rate 80 /min Blood Pressure Diastolic 78 mm Hg Blood Pressure Systolic 120 mm Hg Results Name Result Date Reference Range Unit Abnormality Flag URINE AUTO W/O SCOPE ----Bili neg 20160910 ----pH 6.0 20160910 ----Nitrite neg 20160910 ----Protein trace 20160910 ----Blood large+++ 20160910 ----Ketones neg 20160910 ----Glucose 2000 20160910 ----Turbidity clear 20160910 ----Spec [place] 1.020 20160910 ----Color yellow 20160910 ----Urobilinogen 0.2 20160910 ----Leuk Est neg 20160910 CBC ----Platelets 152 20160910 ----NEUTROPHILS MID-0.4,GRA-3.8 20160910 ----MCHC 35.2 20160910 ----MCH 33.1H 20160910 ----MCV 94.0 20160910 ----WBC 5.8 20160910 ----RDW 12.6 20160910 ----RBC 4.56 20160910 ----Hemoglobin 15.1 20160910 ----Hematocrit 42.9 20160910 Comp. Metabolic Panel (14) ----Sodium, Serum 140 20160909 134-144 mmol/L ----BUN/Creatinine Ratio 19 20160909 10-24 ----Chloride, Serum 101 20160909 96-106 mmol/L ----Potassium, Serum 4.5 20160909 3.5-5.2 mmol/L ----Calcium, Serum 9.3 20160909 8.6-10.2 mg/dL ----Protein, Total, Serum 7.0 20160909 6.0-8.5 g/dL ----Carbon Dioxide, Total 21 20160909 18-29 mmol/L ----A/G Ratio 1.7 20160909 1.2-2.2 ----eGFR If NonAfricn Am 71 20160909 >59 mL/min/1.73 ----Bilirubin, Total 0.5 20160909 0.0-1.2 mg/dL ----eGFR If Africn Am 82 86590300 >59 mL/min/1.73 ----BUN 21 20160909 8-27 mg/dL ----Albumin, Serum 4.4 58384492 3.6-4.8 g/dL ----Globulin, Total 2.6 94992116 1.5-4.5 g/dL ----Creatinine, Serum 1.09 20160909 0.76-1.27 mg/dL ----ALT (SGPT) 25 20160909 0-44 IU/L ----Glucose, Serum 184 20160909 65-99 mg/dL H ----Alkaline Phosphatase, S 67 20160909 39-117 IU/L ----AST (SGOT) 22 20160909 0-40 IU/L Summary Purpose eClinicalWorks Submission
--- OUTSIDE RECORDS SUMMARY | 2019-01-09 08:59 | XMS REPORT ---
Author Author Edgardo Ortiz Organization [employer] Address Unknown Phone Unavailable Care Team Providers Care Medical Manager Name Role Phone Edgardo Ortiz CP Unavailable Allergies, Adverse Reactions, Alerts Substance Reaction Event Type N.K.D.A. Info Not Available Non Drug Allergy Problems Problem Type Condition Code Onset Dates Condition Status Problem CAD (coronary artery disease) I25.10 Active Problem Essential hypertension I10 Active Problem GERD (gastroesophageal reflux disease) K21.9 Active Assessment Type 2 diabetes mellitus with hyperglycemia E11.65 Active Assessment Essential hypertension I10 Active Problem Hx of bladder cancer Z85.51 Active Problem Type 2 diabetes mellitus with hyperglycemia E11.65 Active Medications Medication Code System Code Instructions Start Date End Date Status Dosage Invokana [facility] 56030293138 300 MG Orally Once a day October 22, 2016 Mar 08, 2018 Active 1 tablet Lantus SoloStar [facility] 46456589796 100 UNIT/ML Subcutaneous INJECTING 42 UNIITS EVERY NIGHT (1 BOX) (if above 140 increase by 2 units) Feb 17, 2015 Active as directed OneTouch Test NDC 0 1 In Vitro test blood sugar BID DX: 250.02 August 02, 2012 Active as directed OneTouch Lancets NDC 0 1 subcutaneously test BS BID DX:250.02 August 02, 2012 Active as directed Carvedilol [facility] [address]-66 3.125MG Orally daily Active 1 tablet Aspirin EC [facility] 35999746633 81 MG Orally Once a day Active 1 tablet Lisinopril [facility] 89460145167 20 mg Orally Once a day Jun 24, 2016 Active 1 tablet Vital Signs Date/Time: September 09, 2017 BMI 23.69 Index Weight 138 lbs Height 64 in Temperature 98.5 F Cardiac Monitoring Heart Rate 82 /min Blood Pressure Diastolic 84 mm Hg Blood Pressure Systolic 130 mm Hg Results No Known Results Summary Purpose eClinicalWorks Submission
--- OUTSIDE RECORDS SUMMARY | 2019-01-09 09:00 | XMS REPORT ---
Author Author Edgardo Ortiz [facility] eClinicalWorks Address Unknown Phone Unavailable Care Team Providers Care Drapery Hanger Name Role Phone Edgardo Ortiz Unavailable Allergies No Known Allergies Problems Problem Type Condition Code Onset Dates Condition Status Problem GERD (gastroesophageal reflux disease) K21.9 Active Problem CAD (coronary artery disease) I25.10 Active Problem Type 2 diabetes mellitus without complication, without long-term current use of insulin E11.9 Active Problem Type 2 diabetes mellitus with hyperglycemia E11.65 Active Problem Essential hypertension I10 Active Problem Hx of bladder cancer Z85.51 Active Medications No Known Medications Results No Known Results Summary Purpose eClinicalWorks Submission
--- OUTSIDE RECORDS SUMMARY | 2019-01-09 09:00 | XMS REPORT ---
Author Author Ann Rhodes [facility] eClinicalWorks Address Unknown Phone Unavailable Care Team Providers Care Ruling Technician Name Role Phone nAn Rhodes Unavailable Encounters Encounter Location Date DIABETIC [facility] Dec 11, 2012 Problems Problem Type Condition ICD-9 Code Onset Dates Condition Status Assessment CAD (coronary artery disease) 414.00 Active Problem Insulin dependent type 2 diabetes mellitus, 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 Active Problem Hypertension 401.9 Active Problem CAD (coronary artery disease) 414.00 Active Assessment Hypertension 401.9 Active Assessment GERD (gastroesophageal reflux disease) 530.81 Active Problem GERD (gastroesophageal reflux disease) 530.81 Active Assessment Insulin dependent type 2 diabetes mellitus, 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 Active Medications Medication Code System Code Instructions Start Date End Date Status Dosage Lisinopril [facility] [address]-12 5 MG Orally Once a day Active 1 tablet Aspirin EC [facility] [address]-14 81 MG Orally Once a day Active 1 tablet Carvedilol [facility] [address]-07 3.125 MG Orally Twice a day Active 1 tablet with food OneTouch Test MULTUM 73276 1 In Vitro test blood sugar BID DX: 250.02 August 02, 2012 Active as directed OneTouch Lancets MULTUM 05989 1 subcutaneously test BS BID DX:250.02 August 02, 2012 Active as directed Plavix [facility] [address]-43 75 MG Orally Once a day Active 1 tablet Lantus SoloStar [facility] [address]-27 100 UNIT/ML Subcutaneous Once a day Active 32 units Social History Social History Element Qualifiers Date Reported children . 2 Dec 11, 2012 Tobacco Use: . Are you a: never smoker Dec 11, 2012 Marital Status: single. Dec 11, 2012 Do you drink alcohol? . Status: Yes, Type: Beer, How often? Socially, How much? 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 Metabolic Panel (14) Hgb A1c with eAG Estimation Summary Purpose eClinicalWorks Submission
--- OUTSIDE RECORDS SUMMARY | 2019-01-09 09:00 | XMS REPORT ---
Author Author Paul Portillo Organization eClinicalWorks Address Unknown Phone Unavailable Care Team Providers Care Travel Attendants Name Role Phone Paul Portillo CP Unavailable Allergies, Adverse Reactions, Alerts Substance Reaction Event Type N.K.D.A. Info Not Available Non Drug Allergy Problems Problem Type Condition Code Onset Dates Condition Status Assessment Diarrhea, unspecified type R19.7 Active Assessment Nausea R11.0 Active Assessment Olecranon bursitis, left elbow M70.22 Active Assessment Anemia, unspecified type D64.9 Active Assessment Metastatic cancer C79.9 Active Problem [...] Date End Date Status Dosage Aspirin EC [facility] 88018789204 81 MG Orally Once a day Active 1 tablet Metformin HCl [facility] 46532618799 1000 mg Orally Twice a day October 25, 2017 Active 1 tablet with meals Lisinopril [facility] 63141998161 20 mg Orally Once a day Jun 24, 2016 Active 1 tablet Lantus SoloStar [facility] 84996527865 100 UNIT/ML Subcutaneous INJECTING 50 UNIITS EVERY NIGHT (1 BOX) (if above 140 increase by 2 units) Feb 17, 2015 Active as directed Stool Softener [facility] [address]-08 60 MG/15ML Orally Once a day Active 15 ml as needed NovoLog Flexpen [facility] 58257804477 100 UNIT/ML Subcutaneous take per sliding scale (highest dose would be 10 units TID) Dec 13, 2017 Active as directed Pen [place] 5/16" [facility] 82462736083 31G X 8 MM up to 4 times a day with insulin pens (DX E11.65) Dec 13, 2017 Active as directed Diphenoxylate-Atropine [facility] 04740435193 2.5-0.025 MG Orally Four times a day May 16, 2018 May 21, 2018 Active 1 tablet as needed Carvedilol [facility] [address]-36 3.125MG Orally twice a day (bid) Active 1 tablet Atorvastatin Calcium [facility] 47762284899 20 mg Orally Once a day Active 1 tablet OneTouch Test NDC 0 1 In Vitro test blood sugar BID DX: 250.August 02, 2012 Active as directed Zofran [facility] 74292038428 4 mg Orally Twice a day May 16, 2018 Active 1 tablet OneTouch Lancets NDC 0 1 subcutaneously test BS BID DX:250.02 August 02, 2012 Active as directed Vital Signs Date/Time: May 16, 2018 BMI 24.20 Index Weight 141 lbs Height 64 in Temperature 97.4 F Cardiac Monitoring Heart Rate 74 /min Blood Pressure Diastolic 60 mm Hg Blood Pressure Systolic 100 mm Hg Results No Known Results Summary Purpose eClinicalWorks Submission
--- OUTSIDE RECORDS SUMMARY | 2019-01-09 09:00 | XMS REPORT ---
Author Author Pippa Goode Organization eClinicalWorks Address Unknown Phone Unavailable Care Team Providers Care Cigarette Paper Tester Name Role Phone Pippa Goode CP Unavailable Allergies No Known Allergies Problems Problem Type Condition Code Onset Dates Condition Status Problem GERD (gastroesophageal reflux disease) K21.9 Active Problem CAD (coronary artery disease) I25.10 Active Problem Anemia, unspecified type D64.9 Active Problem Type 2 diabetes mellitus with hyperglycemia E11.65 Active Problem Essential hypertension I10 Active Problem Hx of bladder cancer Z85.51 Active Medications No Known Medications Results No Known Results Summary Purpose eClinicalWorks Submission
--- OUTSIDE RECORDS SUMMARY | 2019-01-09 09:00 | XMS REPORT ---
Author Author Marlena Guajardo [facility] eClinicalWorks Address Unknown Phone Unavailable Care Team Providers Care Fish Egg Packer Name Role Phone Marlena Guajardo CP Unavailable Allergies, Adverse Reactions, Alerts Substance Reaction Event Type N.K.D.A. Info Not Available Non Drug Allergy Problems Problem Type Condition Code Onset Dates Condition Status Assessment Type 2 diabetes mellitus with hyperglycemia E11.65 Active Problem GERD (gastroesophageal reflux disease) K21.9 Active Problem CAD (coronary artery disease) I25.10 Active Problem Type 2 diabetes mellitus without complication, without long-term current use of insulin E11.9 Active Problem Type 2 diabetes mellitus with hyperglycemia E11.65 Active Assessment Essential hypertension I10 Active Problem Essential hypertension I10 Active Problem Hx of bladder cancer Z85.51 Active Medications Medication Code System Code Instructions Start Date End Date Status Dosage Lisinopril [facility] 54145361593 20 mg Orally Once a day Jun 24, 2016 Active 1 tablet Aspirin EC [facility] 18560419804 81 MG Orally Once a day Active 1 tablet Atorvastatin Calcium [facility] 22198642858 20 MG Orally Once a day Active 1 tablet Metformin HCl [facility] 35181491828 1000 mg Orally Twice a day October 25, 2017 Active 1 tablet with meals Carvedilol [facility] [address]-68 3.125MG Orally twice a day (bid) Active 1 tablet Invokana [facility] 28806070992 300 MG Orally Once a day October 22, 2016 Mar 08, 2018 Active 1 tablet Lantus SoloStar [facility] 53186382330 100 UNIT/ML Subcutaneous INJECTING 50 UNIITS EVERY NIGHT (1 BOX) (if above 140 increase by 2 units) Feb 17, 2015 Active as directed Pen [place] 5/16" [facility] 52555517577 31G X 8 MM up to 4 times a day with insulin pens (DX E11.65) Dec 13, 2017 Active as directed NovoLog Flexpen [facility] 32991272551 100 UNIT/ML Subcutaneous Dec 13, 2017 Active as directed OneTouch Test ND 0 1 In Vitro test blood sugar BID DX: 250.02 August 02, 2012 Active as directed Stool Softener [facility] [address]-25 60 MG/15ML Orally Once a day Active 15 ml as needed OneTouch Lancets NDC 0 1 subcutaneously test BS BID DX:250.August 02, 2012 Active as directed Vital Signs Date/Time: Dec 13, 2017 BMI 23.34 Index Weight 136 lbs Height 64 in Cardiac Monitoring Heart Rate 76 /min Blood Pressure Diastolic 60 mm Hg Blood Pressure Systolic 140 mm Hg Results Name Result Date Reference Range Unit Abnormality Flag GLUCOSE FINGER STICK Summary Purpose eClinicalWorks Submission
--- OUTSIDE RECORDS SUMMARY | 2019-01-09 09:00 | XMS REPORT ---
Author Author Pippa Goode Organization eClinicalWorks Address Unknown Phone Unavailable Care Team Providers Care Calibration Laboratory Technician Name Role Phone Pippa Goode CP Unavailable Allergies No Known Allergies Problems Problem Type Condition Code Onset Dates Condition Status Assessment Abnormal chest xray R93.89 Active Problem GERD (gastroesophageal reflux disease) K21.9 Active Problem CAD (coronary artery disease) I25.10 Active Problem Anemia, unspecified type D64.9 Active Problem Type 2 diabetes mellitus with hyperglycemia E11.65 Active Problem Essential hypertension I10 Active Problem Hx of bladder cancer Z85.51 Active Medications No Known Medications Results No Known Results Summary Purpose eClinicalWorks Submission
--- OUTSIDE RECORDS SUMMARY | 2019-01-09 09:00 | XMS REPORT ---
Author Author Pippa Goode Organization eClinicalWorks Address Unknown Phone Unavailable Care Team Providers Care Chart Changer Name Role Phone Pippa Goode CP Unavailable Allergies No Known Allergies Problems Problem Type Condition Code Onset Dates Condition Status Problem Anemia, unspecified type D64.9 Active Problem GERD (gastroesophageal reflux disease) K21.9 Active Problem Metastatic cancer C79.9 Active Problem Hx of bladder cancer Z85.51 Active Problem Type 2 diabetes mellitus with hyperglycemia E11.65 Active Problem CAD (coronary artery disease) I25.10 Active Problem Essential hypertension I10 Active Medications No Known Medications Results No Known Results Summary Purpose eClinicalWorks Submission
--- OUTSIDE RECORDS SUMMARY | 2019-01-09 09:00 | XMS REPORT ---
Author Author Marlena Guajardo [facility] eClinicalWorks Address Unknown Phone Unavailable Care Team Providers Care Card Filer Name Role Phone Marlena Guajardo CP Unavailable Allergies, Adverse Reactions, Alerts Substance Reaction Event Type N.K.D.A. Info Not Available Non Drug Allergy Problems Problem Type Condition Code Onset Dates Condition Status Assessment Screening for colon cancer Z12.11 Active Assessment Routine physical examination Z00.00 Active Assessment Screening for prostate cancer Z12.5 Active Problem GERD (gastroesophageal reflux disease) K21.9 Active Problem CAD (coronary artery disease) I25.10 Active Problem Anemia, unspecified type D64.9 Active Problem Type 2 diabetes mellitus with hyperglycemia E11.65 Active Problem Essential hypertension I10 Active Problem Hx of bladder cancer Z85.51 Active Assessment Olecranon bursitis, left elbow M70.22 Active Assessment Type 2 diabetes mellitus with hyperglycemia E11.65 Active Assessment CAD (coronary artery disease) I25.10 Active Assessment Anemia, unspecified type D64.9 Active Assessment Essential hypertension I10 Active Assessment GERD (gastroesophageal reflux disease) K21.9 Active Assessment Hx of bladder cancer Z85.51 Active Medications Medication Code System Code Instructions Start Date End Date Status Dosage Atorvastatin Calcium [facility] 17097949187 20 mg Orally Once a day Active 1 tablet Stool Softener [facility] [address]-17 60 MG/15ML Orally Once a day Active 15 ml as needed Pen [place] 5/16" [facility] 36830104446 31G X 8 MM up to 4 times a day with insulin pens (DX E11.65) Dec 13, 2017 Active as directed Metformin HCl [facility] 67335859544 1000 mg Orally Twice a day October 25, 2017 Active 1 tablet with meals Lisinopril [facility] 48212067497 20 mg Orally Once a day Jun 24, 2016 Active 1 tablet Aspirin EC [facility] 85631997176 81 MG Orally Once a day Active 1 tablet OneTouch Test ND 0 1 In Vitro test blood sugar BID DX: 250.02 August 02, 2012 Active as directed Lantus SoloStar [facility] 97983539853 100 UNIT/ML Subcutaneous INJECTING 50 UNIITS EVERY NIGHT (1 BOX) (if above 140 increase by 2 units) Feb 17, 2015 Active as directed OneTouch Lancets [facility] 0 1 subcutaneously test BS BID DX:250.02 August 02, 2012 Active as directed NovoLog Flexpen [facility] 25193322795 100 UNIT/ML Subcutaneous take per sliding scale (highest dose would be 10 units TID) Dec 13, 2017 Active as directed Carvedilol [facility] [address]-51 3.125MG Orally twice a day (bid) Active 1 tablet Vital Signs Date/Time: Apr 10, 2018 BMI 23.17 Index Weight 135 lbs Height 64 in Cardiac Monitoring Heart Rate 85 /min Blood Pressure Diastolic 74 mm Hg Blood Pressure Systolic 112 mm Hg Results Name Result Date Reference Range Unit Abnormality Flag EKG Summary Purpose eClinicalWorks Submission
--- OUTSIDE RECORDS SUMMARY | 2019-01-09 09:00 | XMS REPORT ---
Author Author Edgardo Ortiz eClinicalWorks Address Unknown Phone Unavailable Care Team Providers Care Stamp Presser Name Role Phone Edgardo Ortiz Unavailable Allergies, Adverse Reactions, Alerts Substance Reaction [...] diabetes mellitus with hyperglycemia E11.65 Active Assessment Type 2 diabetes mellitus without complication, without long-term current use of insulin E11.9 Active Problem Essential hypertension I10 Active Problem Hx of bladder cancer Z85.51 Active Medications Medication Code System Code Instructions Start Date End Date Status Dosage Lisinopril [facility] 78933401743 20 mg Orally Once a day Jun 24, 2016 Active 1 tablet Carvedilol [facility] [address]-74 3.125MG Orally daily Active 1 tablet Lantus SoloStar [facility] 43696449666 100 UNIT/ML Subcutaneous INJECTING 42 UNIITS EVERY NIGHT (1 BOX) (if above 140 increase by 2 units) Feb 17, 2015 Active as directed Invokana [facility] 26898803050 300 MG Orally Once a day October 22, 2016 Mar 08, 2018 Active 1 tablet Aspirin EC [facility] 90571176609 81 MG Orally Once a day Active 1 tablet OneTouch Test NDC 0 1 In Vitro test blood sugar BID DX: 250.02 August 02, 2012 Active as directed Metformin HCl [facility] 40042656138 1000 mg Orally Twice a day October 25, 2017 Active 1 tablet with meals OneTouch Lancets NDC 0 1 subcutaneously test BS BID DX:250.02 August 02, 2012 Active as directed Vital Signs Date/Time: October 25, 2017 BMI 22.66 Index Weight 132 lbs Height 64 in Cardiac Monitoring Heart Rate 73 /min Blood Pressure Diastolic 68 mm Hg Blood Pressure Systolic 100 mm Hg Results No Known Results Summary Purpose eClinicalWorks Submission
--- OUTSIDE RECORDS SUMMARY | 2019-01-09 09:00 | XMS REPORT ---
Author Author Pippa Goode Organization eClinicalWorks Address Unknown Phone Unavailable Care Team Providers Care Telephone Plant Power Operator Name Role Phone Pippa Goode CP Unavailable [...]
--- OUTSIDE RECORDS SUMMARY | 2019-01-09 09:00 | XMS REPORT ---
Author Author Marlena Guajardo [facility] eClinicalWorks Address Unknown Phone Unavailable Care Team Providers Care Customer Success Intern Name Role Phone Marlena Guajardo CP Unavailable [...] diabetes mellitus with hyperglycemia E11.65 Active Assessment Cough R05 Active Problem Essential hypertension I10 Active Problem Hx of bladder cancer Z85.51 Active Medications Medication Code System Code Instructions Start Date End Date Status Dosage Aspirin EC [facility] 96675736555 81 MG Orally Once a day Active 1 tablet Pen [place] 5/16" [facility] 12552867724 31G X 8 MM up to 4 times a day with insulin pens (DX E11.65) Dec 13, 2017 Active as directed Stool Softener [facility] [address]-34 60 MG/15ML Orally Once a day Active 15 ml as needed Carvedilol [facility] [address]-75 3.125MG Orally twice a day (bid) Active 1 tablet NovoLog Flexpen [facility] 33361762552 100 UNIT/ML Subcutaneous take per sliding scale (highest dose would be 10 units TID) Dec 13, 2017 Active as directed Lisinopril [facility] 67520305013 20 mg Orally Once a day Jun 24, 2016 Active 1 tablet Invokana [facility] 00744749132 300 MG Orally Once a day October 22, 2016 Mar 08, 2018 Active 1 tablet OneTouch Lancets NDC 0 1 subcutaneously test BS BID DX:250.02 August 02, 2012 Active as directed OneTouch Test NDC 0 1 In Vitro test blood sugar BID DX: 250.02 August 02, 2012 Active as directed Atorvastatin Calcium [facility] 21682500971 20 MG Orally Once a day Active 1 tablet Metformin HCl [facility] 96743957994 1000 mg Orally Twice a day October 25, 2017 Active 1 tablet with meals Benzonatate [facility] 76566657698 200 MG Orally Q7 PRN Dec 28, 2017 Jan 04, 2018 Active 1 capsule Lantus RosalesoStar [facility] 03086144939 100 UNIT/ML Subcutaneous INJECTING 50 UNIITS EVERY NIGHT (1 BOX) (if above 140 increase by 2 units) Feb 17, 2015 Active as directed Vital Signs Date/Time: Dec 28, 2017 BMI 24.71 Index Weight 144 lbs Height 64 in Temperature 98.9 F Cardiac Monitoring Heart Rate 70 /min Blood Pressure Diastolic 70 mm Hg Blood Pressure Systolic 110 mm Hg Results Name Result Date Reference Range Unit Abnormality Flag CBC ----Platelets 157 20171228 ----NEUTROPHILS MID-0.4,GRA-4.3 20171228 ----MCHC 31.3 20171228 ----MCH 29.3 [id number] ----MCV 93.5 20171228 ----WBC 6.0 20171228 ----RDW 16.1H 20171228 ----RBC 3.45L 20171228 ----Hemoglobin 10.1L 20171228 ----Hematocrit 32.3L [id number] Chest 2 views- Xray Summary Purpose eClinicalWorks Submission
--- OUTSIDE RECORDS SUMMARY | 2019-01-09 09:01 | XMS REPORT ---
Author Author Pippa Goode [facility] eClinicalWorks Address Unknown Phone Unavailable Care Team Providers Care Buffer Machine Name Role Phone Pippa Goode Unavailable Encounters Encounter Location Date Refill [facility] Apr 11, 2014 MED REFILL [facility] August 16, 2014 2 WK FOLLOW UP FBW [facility] September 02, 2014 Metformin [facility] September 03, 2014 DIABETIC CHK [facility] Dec 11, 2012 Unknown [facility] Apr 04, 2013 DIAB K [facility] Apr 11, 2013 Diabetic check [facility] Apr 17, 2015 labs [facility] Dec 04, 2014 3 MONTH FOLLOW UP [facility] Dec 03, 2014 Refill [facility] Dec 29, 2015 RF [facility] July 30, 2015 Refill [facility] August 27, 2015 Problems Problem Type Condition ICD-9 Code Onset Dates Condition Status Problem Normal body mass index V49.89 Active Problem History of bladder cancer V10.51 Active Problem Body Mass Index between 19-24, adult V85.1 Active Problem Hypertension 401.9 Active Problem GERD (gastroesophageal reflux disease) 530.81 Active Problem CAD (coronary artery disease) 414.00 Active Problem Insulin dependent type 2 diabetes mellitus, 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 never August 27, 2015 Depression Screening: . negative August 27, 2015 Flu Vaccine: . NO August 27, 2015 Last Colonoscopy: . 08/02/2008 August 27, 2015 children . 2 August 27, 2015 Tobacco Use: . Are you a: never smoker August 27, 2015 Marital Status: single. August 27, 2015 Do you drink alcohol? . Status: Yes, Type: Beer, How often? Socially, How much? 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
--- OUTSIDE RECORDS SUMMARY | 2019-01-09 09:01 | XMS REPORT ---
Author Author Pippa Goode Organization eClinicalWorks Address Unknown Phone Unavailable Care Team Providers Care Cereal Popper Name Role Phone Pippa Goode CP Unavailable Encounters Encounter Location Date Refill [facility] Apr 11, 2014 DIABETIC [facility] Dec 11, [address] 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 2 Apr 11, 2013 Tobacco Use: . Are you a: never smoker Apr 11, 2013 Marital Status: single. Apr 11, 2013 Do you drink alcohol? . Status: Yes, Type: Beer, How often? Socially, How much? 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
--- OUTSIDE RECORDS SUMMARY | 2019-01-09 09:01 | XMS REPORT ---
Author Author Pippa Goode [facility] eClinicalWorks Address Unknown Phone Unavailable Care Team Providers Care Guest Services Associate Name Role Phone Pippa Goode Unavailable Allergies, Adverse Reactions, Alerts Substance Reaction Event Type N.K.D.A. Info Not Available Non Drug Allergy Encounters Encounter Location Date Refill [facility] Apr 11, 2014 MED REFILL [facility] August 16, 2014 2 WK FOLLOW UP FBW [facility] September 02, 2014 Metformin [facility] September 03, 2014 DIABETIC CHK [facility] Dec 11, 2012 Unknown [facility] Apr 04, 2013 DIAB CHK [facility] Apr 11, 2013 Diabetic check [facility] Apr 17, 2015 labs [facility] Dec 04, 2014 3 MONTH FOLLOW UP [facility] Dec 03, 2014 Refill [facility] Dec 29, 2015 3 MONTH FOLLOW UP [facility] Jan 20, 2016 RF [facility] July 30, 2015 Refill [facility] August 27, 2015 Problems Problem Type Condition ICD-9 Code Onset Dates Condition Status Assessment Bladder cancer C67.9 Active Assessment CAD (coronary artery disease) I25.10 Active Assessment Essential hypertension I10 Active Problem [...] Date End Date Status Dosage Aspirin [facility] [address]-38 81 MG Orally Once a day Active 1 tablet OneTouch Test Unknown 0 1 In Vitro test blood sugar BID DX: 250.02 August 02, 2012 Active as directed Carvedilol [facility] [address]-10 3.125MG Orally daily Active 1 tablet Lisinopril [facility] [address]-78 10 mg Orally Once a day Active 1 tablet OneTouch Lancets Unknown 0 1 subcutaneously test BS BID DX:250.02 August 02, 2012 Active as directed Metformin HCl [facility] [address]-57 500 mg Orally twice a day (bid) with meal Dec 04, 2014 Active 1 tablet Lantus SoloStar [facility] [address]-50 100 UNIT/ML Subcutaneous INJECTING 36 UNIITS EVERY NIGHT (1 BOX) Feb 17, 2015 Active as directed Social History Social History Element Qualifiers Date Reported Last Bone Density: . never Jan 20, 2016 Depression Screening: . negative Jan 20, 2016 Flu Vaccine: . NO Jan 20, 2016 Last Colonoscopy: . 08/02/2008 Jan 20, 2016 children . 2 Jan 20, 2016 Tobacco Use: . Are you a: never smoker Jan 20, 2016 Marital Status: single. Jan 20, 2016 Do you drink alcohol? . Status: Yes, Type: Beer, How often? Socially, How much? 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
--- OUTSIDE RECORDS SUMMARY | 2019-01-09 09:01 | XMS REPORT ---
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 Active Problem Hypertension 401.9 Active Problem CAD (coronary artery disease) 414.00 Active Problem GERD (gastroesophageal reflux disease) 530.81 Active Medications Medication Code System Code Instructions Start Date End Date Status Dosage Carvedilol [facility] [address]-27 3.125 MG Orally Twice a day Active 1 tablet with food Lantus SoloStar [facility] [address]-83 100 UNIT/ML Subcutaneous Once a day Active 32 units Lisinopril [facility] [address]-44 5 MG Orally Once a day Active 1 tablet Plavix [facility] [address]-53 75 MG Orally Once a day Active 1 tablet Social History Social History Element Qualifiers Date Reported children . 2 Dec 11, 2012 Tobacco Use: . Are you a: never smoker Dec 11, 2012 Marital Status: single. Dec 11, 2012 Do you drink alcohol? . Status: Yes, Type: Beer, How often? Socially, How much? 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
--- OUTSIDE RECORDS SUMMARY | 2019-01-09 09:01 | XMS REPORT | Summary of Care ---
Author Author Kofi De León, [facility] Unknown Address [facility] Phone Unavailable Care Team Providers Care Matcher Name Role Phone JOLANTA Wilson, KEATON Unavailable Unavailable Jolanta DAHL, Keaton Unavailable Unavailable ANDERS DAHL MS, TAYLA Unavailable Unavailable Unavailable Unavailable Functional Status Name Dates Details Functional status health issues are not documented Status: Name Dates Details Cognitive status health issues are not documented Status: Problems Name Dates Details Lower urinary tract symptoms (LUTS) (788.99, R39.9) Status: Active Cancer of kidney (189.0, C64.9) Status: Active Left kidney mass (593.9, N28.89) Status: Active Lung nodule (793.11, R91.1) Status: Active Postoperative examination (V67.00, Z09) Status: Active Bladder cancer (188.9, C67.9) Status: Active Urothelial carcinoma with high risk of metastasis (199.1, C68.9) Status: Active Medications Name Dates Details Lantus SOLN Active [place] Aspirin CAPS * Refills: 0 Active Carvedilol TABS * Refills: 0 Active Clopidogrel Bisulfate TABS * Refills: 0 Active Lisinopril TABS * Refills: 0 Active Allergies and Adverse Reactions Name Dates Details No Known Drug Allergies (Allergy) Status: Active Past Medical History Name Dates Details History of Cancer (199.1, C80.1) Status: Resolved Procedures Procedure Dates Details History of Endarterectomy Carotid Artery Completed History of Cholecystotomy Completed History of Previous Stent Placement Completed History of Lithotripsy Completed Immunization Name Dates Details Immunizations not documented Social History Name Dates Details - Status: Name Dates Details Former smoker Vital Signs Date Test Result Details [id number] BP Systolic 120 mm[Hg] Status: Comments: Location: LUE; Position: Sitting BP Diastolic 68 mm[Hg] Status: Comments: Location: LUE; Position: Sitting Height 66 in Status: Weight 132 lb Status: Body Mass Index Calculated 21.31 kg/m2 Status: Body Surface Area Calculated 1.68 m2 Status: Temperature 99 f Status: Comments: Method: Temporal Heart Rate 77 /min Status: Results Date Description Value Details Results not documented Plan of Care Name Dates Details Planned Observations Planned Goals not documented Planned Encounters Appointment; KEATON BETTENCOURT M.D. 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 Showing low-grade papillary urothelial neoplasm, non-invasive. * -Follow-up in 6 months after completion of chemotherapy for cystoscopy * # Known metastatic disease s/p VATS for lung nodule in 01/2018 * - Continue chemo with Dr. Mcnamara of Oncology * Patient was seen, examined and evaluated with my attending physician. Patient agrees and understands treatment plan, all questions and concerns were addressed. More than 50% of time was spent on patient education, explaining medical condition and treatment plan. * Total time spent examining patient, reviewing diagnostic imaging/labs, medical management and patient education: 40 min. * Thank you for the opportunity to participate in the care of your patient. If you have any questions or concerns please do not hesitate to contact our office. * Sincerely, * Antonietta Berman PA-C * [facility] | [facility] * [facility] * Department of Urology * [address] [place] [address] | [facility] [address] | [place] [address] | * [phone] TEL | [phone] FAX Instructions Name Dates Details Instructions not documented Encounters Appointment; KEATON BETTENCOURT M.D. Encounter Diagnosis: Problem not documented On: 27-Jul-2016 10:00 Appointment; KEATON BETTENCOURT M.D. Encounter Diagnosis: Problem not documented On: 27-Jul-2016 10:00 Appointment; KEATON BETTENCOURT M.D. Encounter Diagnosis: Problem not documented On: 21-Sep-2016 14:45 Appointment; KEATON BETTENCOURT M.D. Encounter Diagnosis: Problem not documented On: 15-Oct-2016 14:30 Appointment; KEATON BETTENCOURT M.D. Encounter Diagnosis: Problem not documented On: 22-Oct-2016 14:30 Appointment; KEATON BETTENCOURT M.D. Encounter Diagnosis: Problem not documented On: 26-Oct-2016 9:15 Appointment; KEATON BETTENCOURT M.D. Encounter Diagnosis: Problem not documented On: 29-Oct-2016 13:00 Appointment; KEATON BETTENCOURT M.D. Encounter Diagnosis: Problem not documented On: 29-Mar-2017 10:00 Appointment; KEATON BETTENCOURT M.D. Encounter Diagnosis: Problem not documented On: 05-Jul-2017 15:15 Appointment; KEATON BETTENCOURT M.D. Encounter Diagnosis: Problem not documented On: 09-Aug-2017 14:45 Appointment; Mauricio Maxwell M.D. Encounter Diagnosis: Problem not documented On: 22-Aug-2017 9:30 Appointment; Mauricio Maxwell M.D. Encounter Diagnosis: Problem not documented On: 29-Aug-2017 10:30 Appointment; Mauricio Maxwell M.D. Encounter Diagnosis: Problem not documented On: 05-Sep-2017 11:45 Appointment; Mauricio Maxwell M.D. Encounter Diagnosis: Problem not documented On: 27-Sep-2017 9:00 Appointment; Mauricio Maxwell M.D. Encounter Diagnosis: Problem not documented On: 03-Oct-2017 9:15 Appointment; Mauricio Maxwell M.D. Encounter Diagnosis: Problem not documented On: 10-Oct-2017 9:00 Appointment; Mauricio Maxwell M.D. Encounter Diagnosis: Problem not documented On: 24-Oct-2017 9:30 Appointment; Mauricio Maxwell M.D. Encounter Diagnosis: Problem not documented On: 31-Oct-2017 9:15 Appointment; KEATON BETTENCOURT M.D. Encounter Diagnosis: Problem not documented On: 08-Nov-2017 14:45 Appointment; Mauricio Maxwell M.D. Encounter Diagnosis: Problem not documented On: 14-Nov-2017 9:15 Appointment; Mauricio Maxwell M.D. Encounter Diagnosis: Problem not documented On: 21-Nov-2017 9:15 Appointment; Mauricio Maxwell M.D. Encounter Diagnosis: Problem not documented On: 05-Dec-2017 9:15 Appointment; Mauricio Maxwell M.D. Encounter Diagnosis: Problem not documented On: 12-Dec-2017 9:00 Appointment; HALLEY NUNEZ M.D. Encounter Diagnosis: Problem not documented On: 13-Dec-2017 10:00 Appointment; KEATON BETTENCOURT M.D. Encounter Diagnosis: Problem not documented On: 20-Dec-2017 14:15 Appointment; TAYLA MCNAMARA M.D. Encounter Diagnosis: Problem not documented On: 26-Dec-2017 9:00 Appointment; DANIEL COLINDRES M.D. Encounter Diagnosis: Problem not documented On: 03-Jan-2018 14:00 Appointment; KEATON BETTENCOURT M.D. Encounter Diagnosis: Problem not documented On: 12-Jan-2018 13:30 Appointment; KEATON BETTENCOURT M.D. Encounter Diagnosis: Problem not documented On: 24-Jan-2018 14:45 Appointment; TAYLA MCNAMARA M.D. Encounter Diagnosis: Problem not documented On: 30-Jan-2018 10:00 Appointment; DANIEL COLINDRES M.D. Encounter Diagnosis: Problem not documented On: 06-Feb-2018 10:30 Appointment; TAYLA MCNAMARA M.D. Encounter Diagnosis: Problem not documented On: 20-Feb-2018 15:00 Appointment; DANIEL COLINDRES M.D. Encounter Diagnosis: Problem not documented On: 06-Mar-2018 11:00 Appointment; CELIA ESPINO M.D. Encounter Diagnosis: Problem not documented On: 15-Mar-2018 10:00 Appointment; RADIOLOGY, MD PROVIDER Encounter Diagnosis: Problem not documented On: 21-Mar-2018 8:30 Appointment; Mauricio Maxwell M.D. Encounter Diagnosis: Problem not documented On: 05-Apr-2018 12:00 Appointment; KEATON BETTENCOURT M.D. Encounter Diagnosis: Problem not documented On: 18-Apr-2018 13:00 Appointment; TAYLA MCNAMARA M.D. Encounter Diagnosis: Problem not documented On: 17-May-2018 9:30 Appointment; TAYLA MCNAMARA M.D. Encounter Diagnosis: Problem not documented On: 23-May-2018 15:00 Appointment; KEATON BETTENCOURT M.D. Encounter Diagnosis: Problem not documented On: 24-May-2018 9:00 Appointment; TAYLA MCNAMARA M.D. Encounter Diagnosis: Problem not documented On: 29-May-2018 12:00 Appointment; TAYLA MCNAMARA M.D. Encounter Diagnosis: Problem not documented On: 05-Jun-2018 14:30 Appointment; TAYLA MCNAMARA M.D. Encounter Diagnosis: Problem not documented On: 12-Jun-2018 10:30 Appointment; TAYLA MCNAMARA M.D. Encounter Diagnosis: Problem not documented On: 19-Jun-2018 12:00 Appointment; TAYLA MCNAMARA M.D. Encounter Diagnosis: Problem not documented On: 26-Jun-2018 13:45 Appointment; TAYLA MCNAMARA M.D. Encounter Diagnosis: Problem not documented On: 28-Jun-2018 11:00 Appointment; TAYLA MCNAMARA M.D. Encounter Diagnosis: Problem not documented On: 19-Jul-2018 11:00 Appointment; KEATON BETTENCOURT M.D. Encounter Diagnosis: Problem not documented On: 25-Jul-2018 15:15"
--- OUTSIDE RECORDS SUMMARY | 2019-01-09 09:01 | XMS REPORT ---
Author Author Ann Rhodes [facility] eClinicalWorks Address Unknown Phone Unavailable Care Team Providers Care Rag Washer Name Role Phone Ann Rhodes Unavailable Encounters Encounter Location Date DIABETIC [facility] Dec 11, 2012 Unknown [facility] Apr 04, 2013 DIAB [facility] Apr 11, 2013 Problems Problem Type Condition ICD-9 Code Onset Dates Condition Status Assessment GERD (gastroesophageal reflux disease) 530.81 Active Assessment CAD (coronary artery disease) 414.00 Active Problem CAD (coronary artery disease) 414.00 Active Problem Insulin dependent type 2 diabetes mellitus, 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 Active Problem History of bladder cancer V10.51 Active Assessment Insulin dependent type 2 diabetes mellitus, 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 Active Assessment Hypertension 401.9 Active Problem Hypertension 401.9 Active Problem GERD (gastroesophageal reflux disease) 530.81 Active Medications Medication Code System Code Instructions Start Date End Date Status Dosage Lantus SoloStar [facility] [address]-67 100 UNIT/ML Subcutaneous Once a day Active 32 units Plavix [facility] [address]-51 75 mg Orally Once a day Active 1 tablet Carvedilol [facility] [address]-78 3.125 MG Orally Twice a day Active 1 tablet with food OneTouch Lancets [facility] 82245 1 subcutaneously test BS BID DX:250.02 August 02, 2012 Active as directed Aspirin EC [facility] [address]-62 81 MG Orally Once a day Active 1 tablet Lisinopril [facility] [address]-57 5 MG Orally Once a day Active 1 tablet OneTouch Test [facility] 13856 1 In Vitro test blood sugar BID DX: 250.02 August 02, 2012 Active as directed Social History Social History Element Qualifiers Date Reported children . 2 Apr 11, 2013 Tobacco Use: . Are you a: never smoker Apr 11, 2013 Marital Status: single. Apr 11, 2013 Do you drink alcohol? . Status: Yes, Type: Beer, How often? Socially, How much? 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
--- OUTSIDE RECORDS SUMMARY | 2019-01-09 09:01 | XMS REPORT ---
[facility] Address Unknown Phone Unavailable Care Team Providers Care Post Doc Fellowship Name Role Phone ANATOLIY CERVANTES Unavailable Unavailable Problems This patient has no known problems. Allergies, Adverse Reactions, Alerts This patient has no known allergies or adverse reactions. Medications This patient has no known medications. Encounters Start Date/Time End Date/Time Encounter Type Admission Type Attending Clinicians Care Facility Care Department Encounter ID 2018-11-15 13:08:00 2018-11-15 13:08:00 Outpatient [facility] [id number] 2018-08-09 09:40:00 2018-08-09 09:40:00 Outpatient [facility] [id number] Results Test Description Test Time Test Comments Text Results Atomic Results Result Comments CT CHEST W 2017-10-26 17:19:00 [place] [id number] Patient Name: PA MARSHALL MR #: [id number] : 1950 Age/Sex: 67/M Req #: [id number] Adm Physician: Ordered by: ANATOLIY CERVANTES MD Report #: [id number] Location: CT Room/Bed: Procedure: [id number] CT/CT CHEST W Exam Date: 10/26/17 Exam Time: 1630 REPORT STATUS: Signed PROCEDURE: CT scan of the chest WITH intravenous contrast, using PE protocol. TECHNIQUE: The chest was scanned utilizing a multidetector helical scanner from the lung apex through the level of the adrenal glands after the IV administration of 98 cc of Isovue 370. Coronal and sagittal multiplanar reformations were obtained. DLP: 456.2 mGy-cm COMPARISON: None. INDICATIONS: PE WITH KIDNEY CANCER FINDINGS: Lines/tubes: Right chest wall port with catheter tip at the cavoatrial junction. Lungs and Airways: Scattered nodules, including (on series 3): * Right upper lobe 0.4 cm nodule (image 46) * Right middle lobe 0.5 cm nodule along the minor fissure (image 64). * Right upper lobe 0.3 cm area of plugging in a bronchus (image 47). * Right lower lobe 0.6 cm nodule (image 53) No consolidations. Airways are normal. Pleura: The pleural spaces are clear. Heart and mediastinum: Left thyroid lobe 0.6 cm nodules. No significant mediastinal, hilar or axillary lymphadenopathy is seen. The heart and pericardium are within normal limits. LAD stent. Coronary artery calcifications. Soft tissues: Normal. Abdomen: Limited contrast- enhanced views of the upper abdomen show no abnormality within the visualized liver, spleen, or pancreas. The adrenal glands are normal. Partially visualized mass in the superior pole of the left kidney. Bones: The visualized bony thorax is within normal limits for age. IMPRESSION: 1. No evidence of pulmonary embolism or acute thoracic abnormalities. 2. Scattered pulmonary nodules measuring up to 0.6 cm. Recommend correlation with prior imaging if available, and/or follow up per oncology protocol. 3. Partially visualized mass in the superior pole of the left kidney. Dictated by: Mayco Graff M.D. on 10/26/2017 at 17:19 Electronically approved by: Mayco Graff M.D. on 10/26/2017 at 17:19 Dictated By: MAYCO GRAFF MD 18 Transcribed By: ENDY on 10/26/171718 COPY TO: ANATOLIY CERVANTES MD MRI BRAIN WO [place] [id number] Patient Name: PA MARSHALL MR #: [id number] : 1950 Age/Sex: 67/M Req #: [id number] Adm Physician: Ordered by: ANATOLIY CERVANTES MD Report #: [id number] Location: MRI Room/Bed: Procedure: [id number] MRI/MRI BRAIN WO Exam Date: Exam Time: REPORT STATUS: Signed Examination: MRI BRAIN WITHOUT CONTRAST History: Right-sided facial droop. Comparison studies: None Technique: Sagittal T2; axial DWI, FLAIR, GRE or SWI, T1, Coronal FLAIR. Intravenous contrast: None Findings: Scalp: No abnormal signal. No masses. Bone marrow: Normal in signal intensity. Brain volume: Adequate for age. No volume loss. Ventricles: Normal in size and configuration. No hydrocephalus. Extra-axial spaces: No abnormalities. Parenchyma: There are subtle periventricular and pontine white matter confluent areas of T2/FLAIR hyperintensity, nonspecific. No masses, hemorrhage, acute or chronic vascular insults. Suprasellar and sellar region: No abnormalities. Craniocervical junction: No abnormalities. The foramen magnum is patent. No Chiari malformations. Vessels: Normal flow- voids in the arteries and sinuses. Additional findings:None. IMPRESSION: 1. No acute intracranial abnormalities, specifically, no acute infarct. 2. Mild chronic microvascular ischemic change. Signed by: Dr. Thelma Saxena M.D. on 05/19/2017 12:04 PM Dictated By: THELMA MUSTAFA MD Transcribed By: VALERIA on 05/19/171203 COPY TO: ANATOLIY CERVANTES MD
--- OUTSIDE RECORDS SUMMARY | 2019-01-09 09:01 | XMS REPORT ---
Author Author Sara Reilly [facility] eClinicalWorks Address Unknown Phone Unavailable Care Team Providers Care Financial Services Education Consultant Name Role Phone Sara Reilly Unavailable Allergies, Adverse Reactions, Alerts Substance Reaction Event Type N.K.D.A. Info Not Available Non Drug Allergy Encounters Encounter Location Date Refill [facility] Apr 11, 2014 MED REFILL [facility] August 16, 2014 2 WK FOLLOW UP FBW [facility] September 02, 2014 Metformin [facility] September 03, 2014 DIABETIC K [facility] Dec 11, 2012 Unknown [facility] Apr 04, 2013 DIAB K [facility] Apr 11, 2013 Diabetic check [facility] Apr 17, 2015 labs [facility] Dec 04, 2014 3 MONTH FOLLOW UP [facility] Dec 03, 2014 Problems Problem Type Condition ICD-9 Code Onset Dates Condition Status Assessment Essential (primary) hypertension I10 Active Assessment Type 2 diabetes mellitus without complication E11.9 Active Problem Normal body mass index V49.89 Active [...] Date End Date Status Dosage OneTouch Lancets Unknown 0 1 subcutaneously test BS BID DX:250.02 August 02, 2012 Active as directed Lisinopril [facility] [address]-78 5 MG Orally Once a day Active 1 tablet Lantus SoloStar [facility] [address]-40 100 UNIT/ML Subcutaneous INJECTING 36 UNIITS EVERY NIGHT (1 BOX) Feb 17, 2015 Active as directed OneTouch Test Unknown 0 1 In Vitro test blood sugar BID DX: 250.02 August 02, 2012 Active as directed Lisinopril [facility] [address]-54 10 mg Orally Once a day Active 1 tablet Aspirin EC [facility] [address]-87 81 MG Orally Once a day Active 1 tablet Metformin HCl [facility] [address]-21 500 mg Orally twice a day (bid) with meal Dec 04, 2014 Active 1 tablet Carvedilol [facility] [address]-68 3.125MG Orally daily Active 1 tablet Social History Social History Element Qualifiers Date Reported children . 2 Apr 17, 2015 Tobacco Use: . Are you a: never smoker Apr 17, 2015 Marital Status: single. Apr 17, 2015 Do you drink alcohol? . Status: Yes, Type: Beer, How often? Socially, How much? 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
--- OUTSIDE RECORDS SUMMARY | 2019-01-09 09:01 | XMS REPORT ---
Author Author Renee Marie eClinicalWorks Address Unknown Phone Unavailable Care Team Providers Care Pasting Inspector Name Role Phone Renee Marie CP Unavailable Allergies, Adverse Reactions, Alerts Substance Reaction Event Type N.K.D.A. Info Not Available Non Drug Allergy Encounters Encounter Location Date Refill [facility] Apr 11, 2014 MED REFILL [facility] August 16, 2014 2 WK FOLLOW UP FBW [facility] September 02, 2014 Metformin [facility] September 03, 2014 DIABETIC CHK [facility] Dec 11, 2012 Unknown [facility] Apr 04, 2013 DIAB CHK [facility] Apr 11, 2013 Diabetic check [facility] Apr 17, 2015 labs [facility] Dec 04, 2014 3 MONTH FOLLOW UP [facility] Dec 03, 2014 medication refills [facility] Jun 24, 2016 Unknown [facility] Feb 11, 2016 Lab results [facility] Feb 10, 2016 Refill [facility] Dec 29, 2015 3 MONTH FOLLOW UP [facility] Jan 20, 2016 RF [facility] July 30, 2015 Refill [facility] August 27, 2015 Problems Problem Type Condition ICD-9 Code Onset Dates Condition Status Assessment Right anterior shoulder pain M25.511 Active Assessment Essential hypertension I10 Active Assessment [...] Start Date End Date Status Dosage Invokana [facility] [address]-59 100 mg Orally Once a day Active 1 tablet OneTouch Test Unknown 0 1 In Vitro test blood sugar BID DX: 250.August 02, 2012 Active as directed Metformin HCl [facility] [address]-06 500 mg Orally twice a day (bid) with meal Dec 04, 2014 Active 1 tablet Tamsulosin HCl [facility] [address]-88 0.4 MG Orally every night Active 1 capsule OneTouch Lancets Unknown 0 1 subcutaneously test BS BID DX:250.August 02, 2012 Active as directed Lantus SoloStar [facility] [address]-43 100 UNIT/ML Subcutaneous INJECTING 36 UNIITS EVERY NIGHT (1 BOX) Feb 17, 2015 Active as directed Lisinopril [facility] [address]-43 10 mg Orally Once a day Inactive 1 tablet Carvedilol [facility] [address]-56 3.125MG Orally daily Active 1 tablet Aspirin EC [facility] [address]-78 81 MG Orally Once a day Active 1 tablet Naproxen [facility] [address]-59 500 MG Orally every 12 hrs prn Jun 24, 2016 July 09, 2016 Active 1 tablet as needed Lisinopril [facility] [address]-33 20 MG Orally Once a day Jun 24, 2016 Active 1 tablet Social History Social History Element Qualifiers Date Reported Last Bone Density: . 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
--- OUTSIDE RECORDS SUMMARY | 2019-01-09 09:01 | XMS REPORT ---
Author Author Anh Espinosa [facility] eClinicalWorks Address Unknown Phone Unavailable Care Team Providers Care Validation Scientist Name Role Phone Anh Espinosa Unavailable Encounters Encounter Location Date Refill [facility] Apr 11, 2014 MED REFILL [facility] August 16, 2014 2 WK FOLLOW UP FBW [facility] September 02, 2014 Metformin [facility] September 03, 2014 DIABETIC K [facility] Dec 11, 2012 Unknown [facility] Apr 04, 2013 DIAB [facility] Apr 11, 2013 Problems Problem Type Condition ICD-9 Code Onset Dates Condition Status Assessment Insulin dependent type 2 diabetes mellitus, 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 Active Problem Normal body mass index V49.89 [...] Instructions Start Date End Date Status Dosage Metformin HCl [facility] [address]-46 500 mg Orally Once a day Active 1 tablet with meals Metformin HCl [facility] [address]-05 500 mg Orally Twice a day September 03, 2014 Active 2 tablets with meals Social History Social History Element Qualifiers Date Reported children . 2 September 02, 2014 Tobacco Use: . Are you a: never smoker September 02, 2014 Marital Status: single. September 02, 2014 Do you drink alcohol? . Status: Yes, Type: Beer, How often? Socially, How much? 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
--- OUTSIDE RECORDS SUMMARY | 2019-01-09 09:01 | XMS REPORT ---
Author Author Sara Reilly Organization eClinicalWorks Address Unknown Phone Unavailable Care Team Providers Care Global Commodity Manager Name Role Phone Sara Reilly Unavailable Encounters Encounter Location Date Refill [facility] Apr 11, 2014 MED REFILL [facility] August 16, 2014 2 WK FOLLOW UP FBW [facility] September 02, 2014 Metformin [facility] September 03, 2014 DIABETIC CHK [facility] Dec 11, 2012 RF [facility] July 30, 2015 Unknown [facility] Apr 04, 2013 DIAB CHK [facility] Apr 11, 2013 Diabetic check [facility] Apr 17, 2015 labs [facility] Dec 04, 2014 3 MONTH FOLLOW UP [facility] Dec 03, 2014 [...] Date End Date Status Dosage Lantus SoloStar [facility] [address]-33 100 UNIT/ML Subcutaneous INJECTING 36 UNIITS EVERY [...] 1-2 Apr 17, 2015 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
--- OUTSIDE RECORDS SUMMARY | 2019-01-09 09:01 | XMS REPORT ---
Author Author Sara Reilly [facility] eClinicalWorks Address Unknown Phone Unavailable Care Team Providers Care Paper Processing Machine Helper Name Role Phone Sara Reilly Unavailable Allergies, Adverse Reactions, Alerts Substance Reaction Event Type N.K.D.A. Info Not Available Non Drug Allergy Encounters Encounter [facility] Dec 11, 2012 RF [facility] July 30, 2015 Unknown [facility] Apr 04, 2013 Refill [facility] August 27, 2015 DIAB CHK [facility] Apr 11, 2013 Diabetic check [facility] Apr 17, 2015 labs [facility] Dec 04, 2014 3 MONTH FOLLOW UP [facility] Dec 03, 2014 Problems Problem Type Condition ICD-9 Code Onset Dates Condition Status Assessment Type 2 diabetes mellitus with hyperglycemia E11.65 Active Assessment Elevated glucose R73.09 Active Problem Normal body mass index V49.89 [...] Start Date End Date Status Dosage Lisinopril [facility] [address]-29 5 MG Orally Once a day Active 1 tablet [facility] [address]-99 81 MG Orally Once a day Active 1 tablet OneTouch Test Unknown 0 1 In Vitro test blood sugar BID DX: 250.02 August 02, 2012 Active as directed Carvedilol [facility] [address]-78 3.125MG Orally daily Active 1 tablet OneTouch Lancets Unknown 0 1 subcutaneously test BS BID DX:250.02 August 02, 2012 Active as directed Lantus SoloStar [facility] [address]-96 100 UNIT/ML Subcutaneous INJECTING 36 UNIITS EVERY NIGHT (1 BOX) Feb 17, 2015 Active as directed Metformin HCl [facility] [address]-57 500 mg Orally twice a day (bid) with meal Dec 04, 2014 Active 1 tablet Lisinopril [facility] [address]-39 10 mg Orally Once a day Active [...] 1-2 August 27, 2015 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
--- OUTSIDE RECORDS SUMMARY | 2019-01-09 09:01 | XMS REPORT ---
Author Author Renee Marie eClinicalWorks Address Unknown Phone Unavailable Care Team Providers Care Chair Trimmer Name Role Phone Renee Marie CP Unavailable Allergies, Adverse Reactions, Alerts Substance Reaction Event Type N.K.D.A. Info Not Available Non Drug Allergy Encounters Encounter Location Date Refill [facility] Apr 11, 2014 MED REFILL [facility] August 16, 2014 2 WK FOLLOW UP FBW [facility] September 02, 2014 Metformin [facility] September 03, 2014 DIABETIC CHK [facility] Dec 11, 2012 Unknown [facility] Apr 04, 2013 DIAB CHK [facility] Apr 11, 2013 Diabetic check [facility] Apr 17, 2015 labs [facility] Dec 04, 2014 3 MONTH FOLLOW UP [facility] Dec 03, 2014 Unknown [facility] Feb 11, 2016 Lab results [facility] Feb 10, 2016 Refill [facility] Dec 29, 2015 3 MONTH FOLLOW UP [facility] Jan 20, 2016 RF [facility] July 30, 2015 Refill [facility] August 27, 2015 Problems Problem Type Condition ICD-9 Code Onset Dates Condition Status Assessment Type 2 diabetes mellitus with hyperglycemia E11.65 Active Problem Essential hypertension I10 Active Problem CAD (coronary artery disease) I25.10 Active Problem Type 2 diabetes mellitus with hyperglycemia E11.65 Active Problem Bladder cancer C67.9 Active Assessment Acute gastroenteritis K52.9 Active Problem GERD (gastroesophageal reflux disease) K21.9 Active Problem Hx of bladder cancer Z85.51 Active Medications Medication Code System Code Instructions Start Date End Date Status Dosage [facility]ams[facility]osin [facility] [address]-78 0.4 MG Orally every night Active 1 capsule Aspirin [facility] [address]-85 81 MG Orally Once a day Active 1 tablet OneTouch Lancets Unknown 0 1 subcutaneously test BS BID DX:250.02 August 02, 2012 Active as directed OneTouch Test Unknown 0 1 In Vitro test blood sugar BID DX: 250.02 August 02, 2012 Active as directed [facility] [address]-28 12.5 MG Orally every 6 hrs prn Feb 10, 2016 Feb 20, 2016 Active 1 tablet as needed [facility] [address]-86 10 mg Orally Once a day Active [address] [facility] [address]-29 500 mg Orally twice a day (bid) with meal Dec 04, 2014 Inactive 1 tablet Lantus SoloStar [facility] [address]-01 100 UNIT/ML Subcutaneous INJECTING 39 UNIITS EVERY NIGHT (1 BOX) Feb 17, 2015 Active as directed Invokana [facility] [address]-72 100 MG Orally Once a day Feb 10, 2016 Jun 09, 2016 Active 1 tablet Carvedilol [facility] [address]-18 3.125MG Orally daily Active 1 tablet Social History Social History Element Qualifiers Date Reported Last Bone Density: . never Feb 10, 2016 Depression Screening: . negative Feb 10, 2016 Flu Vaccine: . NO Feb 10, 2016 Last Colonoscopy: . 08/02/2008 Feb 10, 2016 children . 2 Feb 10, 2016 Tobacco Use: . Are you a: never smoker Feb 10, 2016 Marital Status: single. Feb 10, 2016 Do you drink alcohol? . Status: Yes, Type: Beer, How often? Socially, How much? 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
--- OUTSIDE RECORDS SUMMARY | 2019-01-09 09:01 | XMS REPORT ---
Author Author Renee Marie eClinicalWorks Address Unknown Phone Unavailable Care Team Providers Care Multimedia Editor Name Role Phone Renee Marie CP Unavailable Encounters Encounter Location Date Refill [facility] Apr 11, 2014 MED REFILL [facility] August 16, 2014 2 WK FOLLOW UP FBW [facility] September 02, 2014 Metformin [facility] September 03, 2014 DIABETIC CHK [facility] Dec 11, 2012 Unknown [facility] Apr 04, 2013 DIAB CHK [facility] Apr 11, 2013 Diabetic check [facility] Apr 17, 2015 labs [facility] Dec 04, 2014 3 MONTH FOLLOW UP [facility] Dec 03, 2014 Unknown [facility] Feb 11, 2016 Refill [facility] Dec 29, 2015 3 MONTH FOLLOW UP [facility] Jan 20, 2016 RF [facility] July 30, 2015 Refill [facility] August 27, 2015 Problems Problem Type Condition ICD-9 Code Onset Dates Condition Status Problem Essential hypertension I10 Active Problem CAD (coronary artery disease) I25.10 Active Problem Type 2 diabetes mellitus with hyperglycemia E11.65 Active Problem Bladder cancer C67.9 Active Problem GERD (gastroesophageal reflux disease) K21.9 Active Problem Hx of bladder cancer Z85.51 Active Social History Social History Element Qualifiers Date [...] 1-2 Feb 10, 2016 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
--- NOTE | 2019-01-09 11:11 | NUR ---
1111 Bedside report received from TANJA Duque.Identiferx2. Alert oriented and appropriate, PERRLA, respirations even and unlabored to room air. Pulses x4 extremities equal and strong. Pedal pulses PT/DPx4. Cap fill brisk < 3 sec. Skin warm and dry integrity appears IV 20g left site [id number] hr,presents healthy w/o s/s of infiltration or complaint. Abdomen soft and supple. pt offered toileting, denies need to urinate or defecate. No personal affects with patient. Family at bedside. Pt and family verbalizes understanding of POC.Rt radial arm band ok to decrease air 11cc total at 12noon No gross issue pain,pallor,pressure or dysrhythmia. No oozing or hematoma with normal neurovascular function. ds/rn
--- NOTE | 2019-01-09 12:00 | NUR ---
12n RADIAL Compression removal: Initial Cuff volume 11cc 12n -2cc Removed No hematoma/bleeding noted with normal neurovascular function. 1215 -5cc Removed No hematoma/ bleeding noted with normal neurovascular function. 1230 4cc Removed No hematoma/bleeding noted with normal neurovascular function. Air removal completed. Stasis achieved sterile 2x2,Tegaderm, Coban dressing No hematoma, bleeding noted with normal neurovascular function. Wrist splint in place. Pt instructed on POC. Ds/Rn
--- NOTE | 2019-01-09 13:45 | Operative Report ---
DATE OF PROCEDURE: 01/09/2019 SURGEON: Jose Lofton MD INDICATION: Coronary artery disease, abnormal stress test. PROCEDURES PERFORMED: 1. Left heart catheterization, selective coronary angiography. 2. Deployment of right wrist TR band. COMPLICATIONS: None. RECOMMENDATIONS: Medical therapy. DESCRIPTION OF PROCEDURE: Access obtained in the right radial artery. 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 Unable to cannulate. LV end-diastolic pressure of 10. No intervention was deemed necessary. Right wrist TR band applied. The patient discharged home same day. Jose Lofton MD K[facility]/MODL /[id number]
--- NOTE | 2019-01-09 15:00 | NUR ---
1500p Pt meets DC criteria. assessed for s/s of complication and presence of hematoma. warm, dry, no discolor, and pulses present. IV removed from left . Distal tip appears intact. VS WNL. Pt denies pain, sob, or need at this time. Family at bedside. Review of discharge paperwork and follow up instructions. verbalized understanding. Pt to wheelchair and transported to front of hospital. Transferred to private vehicle under own strength w/o incident with DC paperwork in hand. -ds/rn
== END | disposition home or self-care (01) ==
LOC: CATH LAB 08:53
PROVIDERS: ATTEND Internal Medicine Interventional Cardiology
DX: I25.118 Atherosclerotic heart disease of native coronary artery with other forms of angina pectoris (principal); R94.39 Abnormal result of other cardiovascular function study; I73.9 Peripheral vascular disease, unspecified; I65.21 Occlusion and stenosis of right carotid artery; C34.90 Malignant neoplasm of unspecified part of unspecified bronchus or lung; E11.9 Type 2 diabetes mellitus without complications; Z01.812 Encounter for preprocedural laboratory examination; Z79.82 Long term (current) use of aspirin; Z79.84 Long term (current) use of oral hypoglycemic drugs; Z95.5 Presence of coronary angioplasty implant and graft; Z85.528 Personal history of other malignant neoplasm of kidney; Z90.5 Acquired absence of kidney; Z92.21 Personal history of antineoplastic chemotherapy
CPT/HCPCS: 36415; 80053; 85025; 93454; C1769; C1887 ×2; J2001; J2250; J3010; J7030; J7040; Q9967